=== PATIENT | female | born 1935 | race Caucasian/White ===

== ENCOUNTER 2016-08-02 20:49 | Inpatient (IN) | payer MEDICARE, OTHER ==
[~2016-08-02] VITALS: Ht 162.6 cm; Wt 108.2 kg
[2016-08-02 22:04] LABS: AADO2 Arterial 82.7 mmHg (7.0-24.0); Arterial Base Excess 3.6 mmol/L (-3.0-3); Arterial COHb 0.2 % (0.0-3.0); Arterial Fraction of Oxyhgb 95.7 % (93.0-99.0); Arterial HCO3 28.2 mmol/L (22.0-26.0); Arterial MetHb 0.1 % (0.0-1.5); Arterial Total Hemglobin 11.3 g/dl (12.0-18.0); MODE NASAL CANNULA
--- NOTE | 2016-08-02 22:35 | RADRPT ---
PROCEDURE: CHEST - 1 VIEW CLINICAL INDICATION: 81-year-old female with chest pain. TECHNIQUE: A single frontal AP upright portable view of the chest was performed. The images were reviewed on a PACS workstation. COMPARISON: None. FINDINGS: The cardiomediastinal silhouette is moderately enlarged. The thoracic aortic arch is calcified. Th ere is a minimal right pleural effusion. There is moderate left pleural effusion with left lower lo be compressive atelectasis. There is no evidence for congestive heart failure. There is no evidenc e for pneumothorax. Degenerative changes are seen within the spine. IMPRESSION: 1. Cardiomegaly. 2. Calcified thoracic aorta. 3. Minimal right pleural effusion. 4. Moderate left pleural effusion with left lower lobe compressive atelectasis. 5. Degenerative changes within the spine. .Sixto Garcia MD, Date Time Electronically viewed and signed by .Sixto Garcia MD, MD on 08/02/2016 22:34 .M/
[2016-08-02] MEDS ORDERED: ASPI-664 PO (22:36)
[2016-08-02] MEDS ORDERED: DILT240T PO (22:36)
[2016-08-02] MEDS ORDERED: APIX5TAB PO (22:36)
[2016-08-02] MEDS ORDERED: SS SC (22:36)
[2016-08-02] MEDS ORDERED: CARV6.25 PO (22:36)
[2016-08-02] MEDS ORDERED: ALLO300T2 PO (22:36)
[2016-08-02] MEDS ORDERED: DULO60CA6 PO (22:36)
[2016-08-02] MEDS ORDERED: DOCU-159 PO (22:36)
--- NOTE | 2016-08-02 22:36 | RADRPT ---
PROCEDURE: X-ray pelvis. CLINICAL INDICATION: Pelvic injury. TECHNIQUE: Single frontal view of the pelvis. COMPARISON: None FINDINGS: The study is limited by demineralization and patient body habitus. No acute fracture or dislocation otherwise identified. IMPRESSION: No acute fracture. RPTAT: [facility] Physician Selvin Date Time Electronically viewed and signed by Physician Selvin on 08/02/2016 22:35 RS/
[2016-08-02] MEDS ORDERED: LYRI100 PO (22:58)
[2016-08-02] MEDS ORDERED: HYDR-906 PO (22:58)
[2016-08-02] MEDS ORDERED: ACET-2047 PO (22:58)
[2016-08-02] MEDS ORDERED: LANT3I SC (22:58)
[2016-08-02] MEDS ORDERED: ESOM40CA51 PO (22:58)
[2016-08-02] MEDS ORDERED: ASCO500S2 PO (22:58)
[2016-08-02] MEDS ORDERED: METO25TA4 PO (22:58)
[2016-08-02] MEDS ORDERED: FURO20TA3 PO (22:58)
[2016-08-02] MEDS ORDERED: LOSA100T7 PO (22:58)
[2016-08-02] MEDS ORDERED: UDROBDM PO (22:58)
[2016-08-02] MEDS ORDERED: POTA20TA96 PO (22:58)
[2016-08-02] MEDS ORDERED: ZINC220C5 PO (22:58)
[2016-08-02] MEDS ORDERED: ATOR40TA68 PO (22:58)
[2016-08-02] MEDS ORDERED: AMIN887L PO (22:58)
[2016-08-02] MEDS ORDERED: MULT-876 PO (22:58)
[2016-08-02] MEDS ORDERED: LEVA0.634 INHALATION (22:58)
[2016-08-02 23:13] LABS: ADD SCAN DIFF NO
[2016-08-02 23:16] LABS: BASOPHILS % 0.4 % (0.0-2.0); EOSINOPHILS # 0.4 10^3/ul (0.0-0.5); EOSINOPHILS % 4.6 % (0.0-7.0); HEMATOCRIT 33.2 % (37.0-47.0); HEMOGLOBIN 10.6 g/dl (12.0-16.0); LYMPHOCYTES # 1.6 10^3/ul (0.8-2.9); LYMPHOCYTES % 17.6 % (15.0-51.0); MEAN CORPUSCULAR HEMOGLOBIN 29.7 pg (29.0-33.0); MEAN CORPUSCULAR HGB CONC 31.9 g/dl (32.0-37.0); MEAN PLATELET VOLUME 10.7 fl (7.4-10.4); MONOCYTE # 0.7 10^3/ul (0.3-0.9); MONOCYTES % 7.3 % (0.0-11.0); NEUTROPHIL # 6.3 10^3/ul (1.6-7.5); NEUTROPHILS % 68.9 % (39.0-77.0); PLATELET COUNT 224 10^3/UL (140-415); RED BLOOD COUNT 3.57 10^6/ul (4.20-5.40); RED CELL DISTRIBUTION WIDTH 14.7 % (11.5-14.5); WHITE BLOOD COUNT 9.1 10^3/ul (4.8-10.8)
[2016-08-02 23:45] LABS: ALBUMIN 3.8 g/dl (3.3-4.9); ALBUMIN/GLOBULIN RATIO 1.35; BILIRUBIN,INDIRECT 0.2 mg/dl (0-1.1); BILIRUBIN,TOTAL 0.2 mg/dl (0.2-1.3); CALCIUM 9.4 mg/dl (8.4-10.2); CREATININE 0.96 mg/dl (0.44-1.00); POTASSIUM 4.5 mmol/L (3.5-5.1); TOTAL PROTEIN 6.6 g/dl (6.1-8.1)
[2016-08-02 23:57] LABS: TROPONIN-I 0.031 ng/ml (0.00-0.12)
[2016-08-03] VITALS (14 sets, daily range): BP systolic 133–196; BP diastolic 60–87; PULSE 75–132; RESP 16–20; Ht 162.6 cm; Wt 108.2 kg
[2016-08-03 00:03] LABS: INR 2.06; PROTIME 23.4 Sec (12.2-14.2); PT RATIO 1.8
[2016-08-03] MEDS ORDERED: SOD CHLORIDE 0.9% 100 ML ONE (00:18)
[2016-08-03] MEDS ORDERED: IOHEXOL 300MG/ML 150 ML BTL ONE (00:18)
[2016-08-03 00:21] LABS: ADD UMIC YES; UR ASCORBIC ACID 40 mg/dL (NEGATIVE); UR BACTERIA FEW /HPF (NONE SEEN); UR BILIRUBIN (Dip) NEGATIVE (NEGATIVE); UR BLOOD (Dip) NEGATIVE (NEGATIVE); UR CLARITY SLIGHTLY CLOUDY (CLEAR); UR COLOR AMBER (YELLOW); UR GLUCOSE (Dip) NEGATIVE (NEGATIVE); UR KETONES (Dip) NEGATIVE (NEGATIVE); UR LEUKOCYTE ESTERASE (Dip) NEGATIVE Leu/ul (NEGATIVE); UR MUCUS FEW /HPF (NONE SEEN); UR NITRITE (Dip) NEGATIVE (NEGATIVE); UR RBC 0 /HPF (0-5); UR SPECIFIC GRAVITY (Dip) 1.024 (1.003-1.030); UR SQUAMOUS EPITHELIAL CELL FEW /HPF (FEW); UR TOTAL PROTEIN (Dip) 1+ mg/dl (NEGATIVE); UR UROBILINOGEN (Dip) NEGATIVE (NEGATIVE)
--- NOTE | 2016-08-03 01:27 | RADRPT ---
PROCEDURE: CTA Chest. CLINICAL INDICATION: Shortness of breath, chest pain, rule out pulmonary embolism. TECHNIQUE: Direct spiral axial sections were obtained from the thoracic inlet to the upper abdomen with the use of 100 cc of Omnipaque-300 nonionic intravenous contrast material. Axial MIP, coronal, and sagittal reformations were obtained. The images were reviewed on a PACS workstation. CTDIvol: 7 .04, 49.29, 20.10 mGy. DLP: 865.04 mGy-cm. One or more of the following dose reduction techniques were used: - Automated exposure control. - Adjustment of the mA and/or kV according to patient size. - Use of iterative reconstruction technique. COMPARISON: None. FINDINGS: No pulmonary embolism is identified, however evaluation for segmental and subsegmental emboli is goodman ited by respiratory motion. The main pulmonary artery is mildly enlarged (3.3 cm). There is no aor tic aneurysm. There are mild to moderate arterial calcifications. The heart is enlarged. The patie nt status post aortic valve replacement. There is a small to moderate pericardial effusion. There is a knxaovau-je-lfaiz left pleural effusion with complete atelectasis of the left lower lobe and lingula. Consolidation is noted left upper lobe. There is a calcified granuloma in the left low er lobe. There is a small right pleural effusion and minimal right lung atelectasis. No suspicious thyroid lesion is seen. There is no thoracic lymphadenopathy. The trachea and mainste m bronchi are patent. There is a porcelain gallbladder. Multiple hepatic and splenic calcified granulomas are noted. There is no suspicious osseous lesion. IMPRESSION: 1. No pulmonary embolism is identified, however evaluation for segmental and subsegmental emboli is limited by respiratory motion. 2. Mildly enlarged main pulmonary, suggestive of pulmonary hypertension. 3. Cardiomegaly and a small to moderate pericardial effusion. 4. Status post aortic valve replacement. 5. Qocrbxst-dn-pltbk left pleural effusion with complete atelectasis of the left lower lobe and asher gula. 6. Left upper lobe consolidation. This also probably represents atelectasis, although pneumonia ca nnot be completely excluded. 7. Small right pleural effusion. 8. Porcelain gallbladder. RPTAT: HTAR .Alexis De Los Santos MD, MD Date Time Electronically viewed and signed by .Alexis De Los Santos MD, MD on 08/03/2016 01:27 .R/
[2016-08-03] MEDS ORDERED: HYDROCODONE/APAP (5/325) TAB PO ONE (01:30)
--- NOTE | 2016-08-03 02:03 | ERA ---
ER Documentation Chief Complaint Date/Time DATE: 08/03/16 TIME: 01:52 Chief Complaint SOB, REFERRED BY PMD FOR FURTHER EVAL, HX OF FALL 3-4 DAYS AGO. LT HIP PAIN HPI This is a 81-year-old female shortness of breath for the past 3-4 days progressively worse. Denies any fevers or chills. Does complain of left hip pain secondary to fall a few days ago. Is ambulatory. No chest pain. No nausea. No vomiting. No chills. No other current issues. ROS All systems reviewed and are negative except as per history of present illness. Medications Home Meds Reported Medications Zinc Sulfate* (Zinc Sulfate*) 220 Mg Cap, 220 MG PO DAILY, CAP 08/02/16 Levalbuterol Hcl* (Levalbuterol Hcl*) 0.63 Mg/3 Ml Vial.neb, 0.63 MG INHALATION Q6H Y for WHEEZING AND SOB, VIAL CHRONIC OBSTRUCTIVE PULMONARY DISEASE 08/02/16 Ascorbic Acid* (Ascorbic Acid*) 500 Mg/5 Ml Syrup, 500 MG PO BID for SUPPLEMENT , #300 ML 08/02/16 Acetaminophen* (Acetaminophen*) 650 Mg Tablet, 650 MG PO Q6H Y for PAIN LEVEL 1- 5, #30 TAB 08/02/16 Guaifenesin-Dextromethorphan* (Robitussin* DM) 100MG/10MG/5ML Syrup, 15 ML PO Q6H Y for COUGH, ML 08/02/16 Amino Acids/Protein Hydrolys (Pro-Stat 64 Liquid) 887 Ml Liquid, 30 ML PO TID for SUPPLEMENT 08/02/16 Potassium Chloride* (Potassium Chloride*) 20 Meq Tablet.er, 20 MEQ PO DAILY for SUPPLEMENT, TAB.SA 08/02/16 Hydrocodone/Acetaminophen ([place] 5-325 Tablet) 1 Each Tablet, 1 EACH PO Q4H for PAIN LEVEL 6-10, TAB 08/02/16 Esomeprazole Magnesium (Esomeprazole Magnesium) 40 Mg Capsule.dr, 40 MG PO BEFORE BREAKFAST for GI PROPHYLAXIS, #30 CAP 08/02/16 Multivit-Min/Iron Fum/Folic AC (Tlans-Uebpnuj-Xlgyhqdl Tablet) 1 Each Tablet, 1 EACH PO for SUPPLEMENT, TAB 08/02/16 Pregabalin* (Lyrica*) 100 Mg Capsule, 100 MG PO QHS for NEUROPATHIC PAIN, CAP 08/02/16 Losartan Potassium* (Losartan Potassium*) 100 Mg Tablet, 100 MG PO DAILY, TAB ESSENTIAL(PRIMARY)HYPERTENSION ; HOLD FOR SBP<110 08/02/16 Metoprolol Tartrate* (Lopressor*) 25 Mg Tablet, 75 MG PO DAILY for HTN, #180 TAB ESSENTIAL (PRIMARY)HYPERTENSION; HOLD FOR SBP<110 08/02/16 Atorvastatin* (Atorvastatin*) 40 Mg Tablet, 40 MG PO QHS for HYPERLIPIDEMIA, # 30 TAB 08/02/16 Furosemide* (Furosemide*) 20 Mg Tablet, 20 MG PO DAILY, #60 TAB HEART FALIURE 08/02/16 Insulin Glargine* (Lantus*) 100 Unit/Ml Soln, 25 UNIT SC QHS, #1 VIAL RELATED TO TYPE 2 DIABETES MELLITUS WITHOUT COMPLICATIONS 08/02/16 Insulin Human Regular (Novolin-R U-100) 100 Unit/Ml Soln, 0 SC SLIDING SCALE , EA INJECT PER SLIDING SCALE: IF 141-180= 1unit ; 181-220= 2units ; 221-260= 3units ; 261-300= 4units ; 301-350= 5units ; 351 and above = 6 units and Call MD. Subcutaneously before meals and at bedtime related to TYPE 2 DIABETES MELLITUS WITHOUT COMPLICATIONS 08/02/16 Apixaban* (Eliquis*) 5 Mg Tablet, 10 MG PO BID for CVA PROPHTLAXIS, TAB 08/02/16 Docusate Sodium* (Docusate Sodium*) 100 Mg Capsule, 100 MG PO BID for CONSTIPATION, #60 CAP 08/02/16 Duloxetine Hcl* (Cymbalta*) 60 Mg Capsule.dr, 60 MG PO DAILY for MAJOR DEPRESSIVE DISORDER, CAP 08/02/16 Carvedilol* (Coreg*) 6.25 Mg Tablet, 6.25 MG PO BID for HTN, #60 TAB HOLD FOR SBP <110 08/02/16 Diltiazem Hcl* (Cardizem LA*) 240 Mg Tab.sr.24h, 240 MG PO DAILY for HTN, #30 TAB.SA HOLD FOR SBP<110 08/02/16 Aspirin* (Aspirin* EC) 81 Mg Tablet.dr, 81 MG PO DAILY for CVA PROPHYLAXIS, TAB 08/02/16 Allopurinol* (Allopurinol*) 300 Mg Tablet, 300 MG PO DAILY Y for GOUT, TAB 08/02/16 Allergies Allergies: Coded Allergies: NSAIDS (Non-Steroidal Anti-Inflamma (Unverified Allergy, Unknown, 08/02/16) codeine (Unverified Allergy, Unknown, 08/02/16) Physical Exam Vitals Vital Signs Date Time Temp Pulse Resp B/P Pulse Ox O2 Delivery O2 Flow Rate FiO2 08/02/16 22:30 Nasal Cannula 2.0 08/02/16 22:30 Nasal Cannula 2 08/02/16 21:05 98.0 64 20 137/73 97 Physical Exam Const: [] Head: Atraumatic Eyes: Normal Conjunctiva ENT: Normal External Ears, Nose and Mouth. Neck: Full range of motion..~ No meningismus. Resp: Clear to auscultation bilaterally Cardio: Regular rate and rhythm, no murmurs Abd: Soft, non tender, non distended. Normal bowel sounds Skin: No petechiae or rashes Back: No midline or flank tenderness Ext: No cyanosis, or edema Neur: Awake and alert Psych: Normal Mood and Affect Result Diagram: 08/02/16 2300 08/02/16 2300 Results 24 hrs Laboratory Tests Test 08/02/16 21:13 08/02/16 23:00 08/02/16 23:25 Blood Gas Specimen Source Blood arterial Arterial Blood Date Drawn 08/02/2016 9:52:33 PM Arterial Blood pH (Temp corrected) 7.440 Arterial Blood pCO2 (Temp correct) 42.4mmhg Arterial Blood pO2 (Temp corrected) 81.4mmHG Arterial Blood HCO3 28.2mmol/L Arterial Blood Base Excess 3.6mmol/L Arterial Blood Oxygen Saturation 96.0mmHG Jordin Test N/A Arterial Blood Gas Puncture Site Right Brachial Arterial Blood Carboxyhemoglobin 0.2% Arterial Blood Methemoglobin 0.1% Blood Gas A-a O2 Differential 82.7mmHg Oxyhemoglobin Percent 95.7% Total Hemoglobin 11.3g/dl Blood Gas Temperature 37.0C Blood Gas Modality NASAL CANNULA FiO2 30.0% Blood Gas Notified Whom KM Blood Gas Notified Time 08/02/2016 10:04:10 PM White Blood Count 9.110^3/ul Red Blood Count 3.5710^6/ul Hemoglobin 10.6g/dl Hematocrit 33.2% Mean Corpuscular Volume 93.0fl Mean Corpuscular Hemoglobin 29.7pg Mean Corpuscular Hemoglobin Concent 31.9g/dl Red Cell Distribution Width 14.7% Platelet Count 80150^3/UL Mean Platelet Volume 10.7fl Neutrophils % 68.9% Lymphocytes % 17.6% Monocytes % 7.3% Eosinophils % 4.6% Basophils % 0.4% Nucleated Red Blood Cells % 0.0/100WBC Neutrophils # 6.310^3/ul Lymphocytes # 1.610^3/ul Monocytes # 0.710^3/ul Eosinophils # 0.410^3/ul Basophils # 0.010^3/ul Nucleated Red Blood Cells # 0.010^3/ul Prothrombin Time 23.4Sec Prothrombin Time Ratio 1.8 INR International Normalized Ratio 2.06 Sodium Level 137mmol/L Potassium Level 4.5mmol/L Chloride Level 95mmol/L Carbon Dioxide Level 31mmol/L Anion Gap 16 Blood Urea Nitrogen 20mg/dl Creatinine 0.96mg/dl Glucose Level 173mg/dl Calcium Level 9.4mg/dl Total Bilirubin 0.2mg/dl Direct Bilirubin 0.00mg/dl Indirect Bilirubin 0.2mg/dl Aspartate Amino Transf (AST/SGOT) 21IU/L Alanine Aminotransferase (ALT/SGPT) 28IU/L Alkaline Phosphatase 78IU/L Troponin I 0.031ng/ml B-Type Natriuretic Peptide 3030PG/ML Total Protein 6.6g/dl Albumin 3.8g/dl Globulin 2.80g/dl Albumin/Globulin Ratio 1.35 Lipase 50U/L Urine Color SUZANNE Urine Clarity SLIGHTLY CLOUDY Urine pH 5.0 Urine Specific [place] 1.024 Urine Ketones NEGATIVEmg/dL Urine Nitrite NEGATIVEmg/dL Urine Bilirubin NEGATIVEmg/dL Urine Urobilinogen NEGATIVEmg/dL Urine Leukocyte Esterase NEGATIVELeu/ul Urine Microscopic RBC 0/HPF Urine Microscopic WBC 2/HPF Urine Squamous Epithelial Cells FEW/HPF Urine Bacteria FEW/HPF Urine Hyaline Casts FEW/HPF Urine Mucus FEW/HPF Urine Hemoglobin NEGATIVEmg/dL Urine Glucose NEGATIVEmg/dL Urine Total Protein 1+mg/dl Current Medications Medications (Trade) Dose Ordered Sig/Carlos Route PRN Reason Start Time Stop Time Status Last Admin Dose Admin Sodium Chloride (NS) 100 ml @ ud STK-MED ONCE .ROUTE 08/03/16 00:18 08/03/16 00:19 DC 08/03/16 00:55 Iohexol (Omnipaque 300mg/ ml) 150 ml STK-MED ONCE .ROUTE 08/03/16 00:18 08/03/16 00:19 DC 08/03/16 00:55 Acetaminophen/ Hydrocodone Bitart ([place] (5/325)) 1 tab ONCE ONCE PO 08/03/16 01:30 08/03/16 01:31 DC 08/03/16 01:16 Procedures/MDM EKG: Rate/Rhythm: Normal Sinus Rhythm QRS, ST, T-waves: No changes consistent w/ acute ischemia Impression: No evidence of ischemia or arrhythmia Chest X-ray 1V Interpreted by me: Soft Tissue: No acute abnormalities Bones: No acute abnormalities Mediastinum/Cardiac Silhouette/Lungs: Increased interstitial fluid markings. Impression: CHF Patient's heart failure symptoms is concerning for acute decompensation and will require inpatient workup and monitoring. Further w/u for ischemia, arrhythmia, PE or dissection will be deferred to the inpatient team. Accepting Care Team: Current data and ongoing care discussed. Time: 1 AM 1 AM Primary Provider: Hospitalist Consulting: [XOXOXO] Outstanding Data: none Departure Diagnosis: Primary Impression: Shortness of breath Additional Impression: CHF (congestive heart failure) Qualified Code: I50.9 - Congestive heart failure, unspecified congestive heart failure chronicity, unspecified congestive heart failure type Condition: Serious DEJAN MATUTE Aug 03, 2016 02:02
[2016-08-03] MEDS ORDERED: ALLOPURINOL 300 MG TAB PO PRN (05:30)
[2016-08-03] MEDS ORDERED: GUAIFENESIN/DM 5ML CUP PO PRN (05:30)
[2016-08-03] MEDS ORDERED: FUROSEMIDE 40 MG INJ IV ONE (05:30)
[2016-08-03] MEDS ORDERED: ONDANSETRON 4 MG INJ IV PRN (05:30)
[2016-08-03] MEDS ORDERED: LEVALBUTEROL (NEB) 0.63 MG/3 ML AMP INH PRN (05:30)
[2016-08-03] MEDS ORDERED: NACL 0.9% 3 ML SYG IV SCH (05:30)
--- NOTE | 2016-08-03 05:35 | HP ---
Date/Time of Note Date/Time of Note DATE: 08/03/16 TIME: 05:09 Assessment/Plan VTE Prophylaxis VTE Prophylaxis Intervention: other (Eliquis) Lines/Catheters [facility] Saline Lock Urinary Cath still in place: Yes Reason Cath still needed: other (indicate) (Clinical condition) Assessment/Plan Chief Complaint/Hosp Course This is a 81-year-old female being admitted to the telemetry floor for: #1 CHF exacerbation: Patient does appear to be clinically overloaded with evidence of bilateral pleural effusions with left greater than the right. BNP 3030. She does appear to be in acute respiratory distress while laying down. At the current time will give her 1 dose of IV Lasix 40 mg, I would like to monitor her fluid status as currently there was evidence of possible small to moderate pericardial effusion on CT scan. Will obtain a 2D echo of the heart and will consult CT surgery. In the meantime will provide gentle diuresis as she also did receive Lasix in the ED. Currently we will keep her n.p.o. in case of possible surgical procedure. Possible consideration for left-sided thoracentesis if diuresis is not adequate. Maintain supplemental O2 saturation. As patient currently has a normal white blood cell count no fevers and no cough at the current time I would think pneumonia is less likely. We will continue to monitor for any signs of infection. Consult cardiology. #2 pericardial effusion: This possibly could be a complication of her most recent aortic valve replacement. Patient had her replacement within the last 3- [address] [facility] based on her records that came with her chart today. Will consult CT surgery. It is possible that this patient may need to be transferred to the facility where she had her recent valve replacement done however we will await further recommendations from CT surgery in the a.m. #3 diabetes mellitus: Continue Lantus, insulin sliding scale #4 COPD: Continue medications from home #5 hypertension: Continue home medications #6 chronic kidney disease: Patient apparently has a history of chronic kidney disease and apparently during her admission at [facility] approximately 3-4 weeks ago her creatinine at that time was approximately about 5. At the current time her creatinine is 0.93. Her previous level could likely have been an acute onset secondary to possible cardiorenal causes. We will continue to follow this at this time. #7 gout: We will hold current medication at this time. #8Left hip pain: Patient's pelvic x-ray did not show any acute signs of fracture. We will continue to monitor patient's pain further imaging if indicated. #9 Normocytic anemia: Hemoglobin currently 10. No current signs of any bleeding. Continue to monitor patient. #10 anticoagulation: This could be possibly to her recent aortic valve replacement however on her med rec it does state regarding CVA prophylaxis. Continue current medication for right now patient may need to have Eliquis held if undergoing procedure. 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 Will defer further management regarding this to the day team once we stabilize the patient's cardiac issues. #12 DVT and GI prophylaxis: On Eliquis, Protonix. Further treatment strategy will be implemented as per the clinical course. Problems: HPI/ROS Admit Date/Time Admit Date/Time Aug 03, 2016 at 01:10 Hx of Present Illness Chief complaint: Shortness of breath 4 days This is a 81-year-old female with a history of multiple medical problems including recent TAVR approximately 3-4 weeks ago, comes in today with shortness of breath 4 days. Of note patient is a poor historian. Patient currently is living at [facility]. Patient states that she started experiencing shortness of breath over the last 3-4 days and it has progressively gotten worse. Patient also states that she fell the other day did not lose any consciousness or hit her head. She did develop fall on her left hip. Patient denies any chest pain or any coughing at this time. Denies any fevers. Denies any sputum production. She does state that she noticed some swelling in her lower extremities. Allergies: NSAIDs, codeine Medications: See JACINDA ROMERO Const: As per HPI Eyes : No pain discharge or redness or change in visual acuity ENT: No pain, sore throat, congestion, congestion, dysphagia or discharge Respiratory: As per HPI Cardiovascular: As per HPI GI : no change in appetite, abdominal pain, nausea, vomiting, diarrhea, constipation, or change in the color his stool Genitourinary: No dysuria, hematuria, flank pain , discharge or CVA tenderness Musculoskeletal: No joint pain, back pain, neck pain, restricted range of motion in neck or joints Skin: As per HPI Neuro: No headache, dizziness, syncope, seizure, focal weakness Endocrine: No polyuria, polydipsia, temperature intolerance Psych: No hallucination, depression, anxiety or suicidal ideation PMH/Family/Social Past Medical History Aortic valve replacement secondary to severe symptomatic aortic stenosis, Dependence on supplemental oxygen Heart failure Pressure ulcer of sacral region Type 2 diabetes with insulin-dependent Hyperlipidemia Major depressive disorder COPD Gout Morbid obesity Hypertension Chronic kidney disease Past Surgical History Aortic valve replacement, pacemaker insertion Family History Significant Family History: no pertinent family hx (Unable to give accurate history) Social History Alcohol Use: none Smoking Status: Former smoker Drug Use: none Exam/Review of Systems Vital Signs Vitals Vital Signs Date Time Temp Pulse Resp B/P Pulse Ox O2 Delivery O2 Flow Rate FiO2 08/03/16 04:04 98.6 72 16 146/65 96 08/03/16 03:06 Nasal Cannula 2.0 Exam Exam General: Patient is a very pleasant morbidly obese female laying in bed in no acute distress. HEENT: Atraumatic, normocephalic. The pupils are equal, round and reactive. Extraocular motor are intact Neck: Supple with full range of motion. No rigidity or meningismus Chest: Nontender Lungs: Dullness to percussion at the left lower lung yee, decreased breath sounds over the left lower lung yee. No overt wheezing appreciated. Heart: Normal S1-S2, Regular rhythm and rate. Possible right-sided systolic murmur at the right second intercostal space Abdomen: Soft , nontender, nondistended , bowel sounds are present. No guarding no rebound tenderness , morbidly obese Extremities: Trace lower extremity edema from the level of the feet to the lower zaragoza, bilateral venous stasis Neurologic: Relatively normal mental state, speech normal, cranial nerves II through XII are intact, motor and sensory are intact, no focal weakness, overall good cognitive ability though some possible memory issues Additional Comments PROCEDURE: CTA Chest. CLINICAL INDICATION: Shortness of breath, chest pain, rule out pulmonary embolism. TECHNIQUE: Direct spiral axial sections were obtained from the thoracic inlet to the upper abdomen with the use of 100 cc of Omnipaque-300 nonionic intravenous contrast material. Axial MIP, coronal, and sagittal reformations were obtained. The images were reviewed on a PACS workstation. CTDIvol: 7.04, 49.29, 20.10 mGy. DLP: 865.04 mGy-cm. One or more of the following dose reduction techniques were used: - Automated exposure control. - Adjustment of the mA and/or kV according to patient size. - Use of iterative reconstruction technique. COMPARISON: None. FINDINGS: No pulmonary embolism is identified, however evaluation for segmental and subsegmental emboli is limited by respiratory motion. The main pulmonary artery is mildly enlarged (3.3 cm). There is no aortic aneurysm. There are mild to moderate arterial calcifications. The heart is enlarged. The patient status post aortic valve replacement. There is a small to moderate pericardial effusion. There is a tbhwveie-kv-lmglj left pleural effusion with complete atelectasis of the left lower lobe and lingula. Consolidation is noted left upper lobe. There is a calcified granuloma in the left lower lobe. There is a small right pleural effusion and minimal right lung atelectasis. No suspicious thyroid lesion is seen. There is no thoracic lymphadenopathy. The trachea and mainstem bronchi are patent. There is a porcelain gallbladder. Multiple hepatic and splenic calcified granulomas are noted. There is no suspicious osseous lesion. IMPRESSION: 1. No pulmonary embolism is identified, however evaluation for segmental and subsegmental emboli is limited by respiratory motion. 2. Mildly enlarged main pulmonary, suggestive of pulmonary hypertension. 3. Cardiomegaly and a small to moderate pericardial effusion. 4. Status post aortic valve replacement. 5. Wlowqsui-cg-dbxhg left pleural effusion with complete atelectasis of the left lower lobe and lingula. 6. Left upper lobe consolidation. This also probably represents atelectasis, although pneumonia cannot be completely excluded. 7. Small right pleural effusion. 8. Porcelain gallbladder. RPTAT: HTAR .Alexis De Los Santos MD, MD Date Time Electronically viewed and signed by .Alexis De Los Santos MD, on 08/03/2016 01:27 PROCEDURE: X-ray pelvis. CLINICAL INDICATION: Pelvic injury. TECHNIQUE: Single frontal view of the pelvis. COMPARISON: None FINDINGS: The study is limited by demineralization and patient body habitus. No acute fracture or dislocation otherwise identified. IMPRESSION: No acute fracture. RPTAT: [facility] Physician Selvin Date Time Electronically viewed and signed by Physician Selvin on 08/02/2016 22:35 PROCEDURE: CHEST - 1 VIEW CLINICAL INDICATION: 81-year-old female with chest pain. TECHNIQUE: A single frontal AP upright portable view of the chest was performed. The images were reviewed on a PACS workstation. COMPARISON: None. FINDINGS: The cardiomediastinal silhouette is moderately enlarged. The thoracic aortic arch is calcified. There is a minimal right pleural effusion. There is moderate left pleural effusion with left lower lobe compressive atelectasis. There is no evidence for congestive heart failure. There is no evidence for pneumothorax. Degenerative changes are seen within the spine. IMPRESSION: 1. Cardiomegaly. 2. Calcified thoracic aorta. 3. Minimal right pleural effusion. 4. Moderate left pleural effusion with left lower lobe compressive atelectasis. 5. Degenerative changes within the spine. .Sixto Garcia MD, Date Time Electronically viewed and signed by .Sixto Garcia MD, on 08/02/2016 22:34 .M/ Labs Result Diagram: 08/02/16 2300 08/02/16 2300 SNEHAL AMANDA Aug 03, 2016 05:23
[2016-08-03] MEDS ORDERED: GLUCOSE GEL 15 GRAM TUBE PO PRN ×2 (06:00)
[2016-08-03] MEDS ORDERED: GLUCOSE GEL 15 GRAM TUBE BUCCAL PRN (06:00)
[2016-08-03] MEDS ORDERED: PENDING SANTYL ORDER FOR WOUND CARE XX PRN (06:00)
[2016-08-03] MEDS ORDERED: DEXTROSE 50% 50 ML SYRINGE IV PRN ×2 (06:00)
[2016-08-03] MEDS ORDERED: GLUCAGON 1 MG INJ IM PRN (06:00)
[2016-08-03] MEDS: PANTOPRAZOLE 40 MG INJ IV SCH (06:13)
[2016-08-03] MEDS: ACETAMINOPHEN 325 MG TAB PO PRN ×2 (06:49→19:16)
[2016-08-03] MEDS ORDERED: ASCORBIC ACID 100 MG/ML 120ML BTL PO SCH (09:00)
[2016-08-03] MEDS: DULOXETINE 30 MG CAP DR PO SCH (09:28)
[2016-08-03] MEDS: PHENAZOPYRIDINE 100 MG TAB PO SCH ×2 (09:28→21:10)
[2016-08-03] MEDS: DOCUSATE SODIUM 100 MG CAP PO SCH ×2 (09:29→21:10)
[2016-08-03] MEDS: ASPIRIN (EC) 81 MG TAB PO SCH (09:29)
[2016-08-03] MEDS: DILTIAZEM (CD) 240 MG CAP PO SCH (09:29)
[2016-08-03] MEDS: ZINC SULFATE 220 MG CAP PO SCH (09:29)
[2016-08-03] MEDS: LOSARTAN 50 MG TAB PO SCH (09:29)
[2016-08-03] MEDS: ASCORBIC ACID 500 MG TAB PO SCH ×2 (09:30→21:10)
[2016-08-03] MEDS: APIXABAN 5 MG TABLET PO SCH ×2 (09:30→21:10)
[2016-08-03] MEDS: INSULIN ASPART [NOVOLOG] 3 ML PEN SC SCH ×4 (09:37→21:36)
--- NOTE | 2016-08-03 13:50 | CONS ---
Date/Time of Note Date/Time of Note DATE: 08/03/16 TIME: 13:40 Assessment/Plan Assessment/Plan Chief Complaint/Hosp Course IMp: 1.CHF-by CT ? diastolic vs systolic. acute on chronic 2.AF with RVR 3.H/O AVR-? bioprosthetic 4.COPD 5.SOB 6. Coagulopathy 7. AnemiA Recc: -Tele -serial ecg's -echo to asses significance of effusion -Continue eliquis but decrease dose -Contineu coreg with increase in dose to improve HR control/dilt/losartan -Give IVP digoxin to improve HR -Gentle lasix diuresis -Continue statin Problems: Consultation Date/Type/Reason Admit Date/Time Aug 03, 2016 at 01:10 Date of Consultation: Aug 03, 2016 Type of Consultation: Cardiology Reason for Consultation CHF Referring Provider: SNEHAL AMANDA of Present Illness 81 y/o female with h/o copd, HTN, CKD, porcelein GB, CHF, recent AVR who P/W sob. Has bilateral effusions and small to moderate effsuion by chest CT. Since admit now with onset of AF Review of Systems: CONSTITUTIONAL: No fevers, chills. PULMONARY: mild sob CARDIOVASCULAR: positive chest pain and palpitations GASTROINTESTINAL: No nausea/vomiting. GENITOURINARY: No hematuria/dysuria. MUSCULOSKELETAL: No myagias/arthalgias. PSYCHIATRIC: The patient denies depression. NEUROLOGIC: generalize weakness Constitutional: other (lethargic) Eyes: no complaints ENT: no complaints Respiratory: shortness of breath Cardiovascular: chest pain, no complaints Gastrointestinal: no complaints Musculoskeletal: bone/joint pain Skin: no complaints Neurologic: confusion Endocrine: no complaints Psychological: no complaints Past Medical History copd, AVR, CKD Medical History: hypertension Past Surgical History h/o AVR Family History Significant Family History: no pertinent family hx Social History Alcohol Use: none Smoking Status: Former smoker Drug Use: none Exam/Review of Systems Vital Signs Vitals Vital Signs Date Time Temp Pulse Resp B/P Pulse Ox O2 Delivery O2 Flow Rate FiO2 08/03/16 12:25 132 08/03/16 11:20 98.6 19 159/79 96 08/03/16 09:03 2.0 08/03/16 08:36 Nasal Cannula Intake and Output 08/02/16 08/02/16 08/03/16 15:00 23:00 07:00 Intake Total 50 ml Output Total 1500 ml Balance -1450 ml Exam Constitutional: other (lethargic) Head: normocephalic ENMT: mucosa pink and moist Neck: jvd (9 cm water), supple Respiratory: diminished breath sounds (at bases/B) Cardiovascular: irregular rhythm (tachycardic) Gastrointestinal: non-tender, soft Musculoskeletal: muscle tone (normal) Extremities: edema (bilateral) Neurological: lethargic Results Result Diagram: 08/02/16 2300 08/02/16 2300 Results 24 hrs Laboratory Tests Test 08/02/16 21:13 08/02/16 23:00 08/02/16 23:25 08/03/16 08:44 Blood Gas Specimen Source Blood arterial Arterial Blood Date Drawn 08/02/2016 9:52:33 PM Arterial Blood pH (Temp corrected) 7.440 Arterial Blood pCO2 (Temp correct) 42.4 Arterial Blood pO2 (Temp corrected) 81.4 Arterial Blood HCO3 28.2 H Arterial Blood Base Excess 3.6 H Arterial Blood Oxygen Saturation 96.0 Jordin Test N/A Arterial Blood Gas Puncture Site Right Brachial Arterial Blood Carboxyhemoglobin 0.2 Arterial Blood Methemoglobin 0.1 Blood Gas A-a O2 Differential 82.7 H Oxyhemoglobin Percent 95.7 Total Hemoglobin 11.3 L Blood Gas Temperature 37.0 Blood Gas Modality NASAL CANNULA FiO2 30.0 Blood Gas Notified Whom KM Blood Gas Notified Time 08/02/2016 10:04:10 PM White Blood Count 9.1 Red Blood Count 3.57 L Hemoglobin 10.6 L Hematocrit 33.2 L Mean Corpuscular Volume 93.0 Mean Corpuscular Hemoglobin 29.7 Mean Corpuscular Hemoglobin Concent 31.9 L Red Cell Distribution Width 14.7 H Platelet Count 224 Mean Platelet Volume 10.7 H Neutrophils % 68.9 Lymphocytes % 17.6 Monocytes % 7.3 Eosinophils % 4.6 Basophils % 0.4 Nucleated Red Blood Cells % 0.0 Neutrophils # 6.3 Lymphocytes # 1.6 Monocytes # 0.7 Eosinophils # 0.4 Basophils # 0.0 Nucleated Red Blood Cells # 0.0 Prothrombin Time 23.4 H Prothrombin Time Ratio 1.8 INR International Normalized Ratio 2.06 Sodium Level 137 Potassium Level 4.5 Chloride Level 95 L Carbon Dioxide Level 31 Anion Gap 16 Blood Urea Nitrogen 20 Creatinine 0.96 Glucose Level 173 Calcium Level 9.4 Total Bilirubin 0.2 Direct Bilirubin 0.00 Indirect Bilirubin 0.2 Aspartate Amino Transf (AST/SGOT) 21 Alanine Aminotransferase (ALT/SGPT) 28 Alkaline Phosphatase 78 Troponin I 0.031 B-Type Natriuretic Peptide 3030 H Total Protein 6.6 Albumin 3.8 Globulin 2.80 Albumin/Globulin Ratio 1.35 Lipase 50 Urine Color SUZANNE Urine Clarity SLIGHTLY CLOUDY A Urine pH 5.0 Urine Specific Orange 1.024 Urine Ketones NEGATIVE Urine Nitrite NEGATIVE Urine Bilirubin NEGATIVE Urine Urobilinogen NEGATIVE Urine Leukocyte Esterase NEGATIVE Urine Microscopic RBC 0 Urine Microscopic WBC 2 Urine Squamous Epithelial Cells FEW Urine Bacteria FEW A Urine Hyaline Casts FEW A Urine Mucus FEW A Urine Hemoglobin NEGATIVE Urine Glucose NEGATIVE Urine Total Protein 1+ H Bedside Glucose 207 Test 08/03/16 09:39 08/03/16 12:03 Prealbumin 7.5 L Bedside Glucose 186 Medications Medications Current Medications Ondansetron HCl (Zofran Inj) 4 mg Q6H PRN IV NAUSEA AND/OR VOMITING; Start at 05:30 Acetaminophen (Tylenol Tab) 650 mg Q6H PRN PO PAIN LEVEL 1-3 OR FEVER Last administered on 08/03/16 06:49; Admin Dose 650 MG; Start 08/03/16 at 05:30 Pantoprazole (Protonix Iv) 40 mg DAILY@06 IV Last administered on 08/03/16 06: 13; Admin Dose 40 MG; Start 08/03/16 at 06:00 Allopurinol (Zyloprim) 300 mg DAILY PRN PO GOUT; Start 08/03/16 at 05:30 Apixaban (Eliquis) 10 mg BID PO Last administered on 08/03/16 09:30; Admin Dose 10 MG; Start 08/03/16 at 09:00 Aspirin (Halfprin) 81 mg DAILY PO Last administered on 08/03/16 09:29; Admin Dose 81 MG; Start 08/03/16 at 09:00 Atorvastatin Calcium (Lipitor) 40 mg QHS PO ; Start 08/03/16 at 21:00 Carvedilol (Coreg) 6.25 mg BID PO Last administered on 08/03/16 09:30; Admin Dose 6.25 MG; Start 08/03/16 at 09:00 Diltiazem HCl (Cardizem Cd) 240 mg DAILY PO Last administered on 08/03/16 09: 29; Admin Dose 240 MG; Start 08/03/16 at 09:00 Docusate Sodium (Colace) 100 mg BID PO Last administered on 08/03/16 09:29; Admin Dose 100 MG; Start 08/03/16 at 09:00 Duloxetine HCl (Cymbalta) 60 mg DAILY PO Last administered on 08/03/16 09:28; Admin Dose 60 MG; Start 08/03/16 at 09:00 Guaifenesin/ Dextromethorphan (Robitussin Dm Liquid Cup) 15 ml Q6H PRN PO COUGH ; Start 08/03/16 at 05:30 Insulin Glargine (Lantus) 25 unit QHS SC ; Start 08/03/16 at 21:00 Losartan Potassium (Cozaar) 100 mg DAILY PO Last administered on 08/03/16 09: 29; Admin Dose 100 MG; Start 08/03/16 at 09:00 Pregabalin (Lyrica) 100 mg QHS PO ; Start 08/03/16 at 21:00 Zinc Sulfate (Zinc Sulfate) 220 mg DAILY PO Last administered on 08/03/16 09: 29; Admin Dose 220 MG; Start 08/03/16 at 09:00 Ascorbic Acid (Vitamin C) 500 mg BID PO Last administered on 08/03/16 09:30; Admin Dose 500 MG; Start 08/03/16 at 09:00 Insulin Aspart (Novolog Insulin Pen) NOVOLOG *MILD* ALGORI... Q4 SC Last administered on 08/03/16 13:22; Admin Dose 2 UNIT; Start 08/03/16 at 09:00 Miscellaneous Information 1 ea NOTE XX ; Start 08/03/16 at 06:00 Glucose (Glutose) 15 gm Q15M PRN PO DECREASED GLUCOSE; Start 08/03/16 at 06:00 Glucose (Glutose) 22.5 gm Q15M PRN PO DECREASED GLUCOSE; Start 08/03/16 at 06: 00 Dextrose (D50w Syringe) 25 ml Q15M PRN IV DECREASED GLUCOSE; Start 08/03/16 at 06:00 Dextrose (D50w Syringe) 50 ml Q15M PRN IV DECREASED GLUCOSE; Start 08/03/16 at 06:00 Glucagon (Glucagen) 1 mg Q15M PRN IM DECREASED GLUCOSE; Start 08/03/16 at 06:00 Glucose (Glutose) 15 gm Q15M PRN BUCCAL DECREASED GLUCOSE; Start 08/03/16 at 06 :00 Miscellaneous Information (Pending Santyl Order For Wound Care) This patient stinson... PRN PRN XX WOUND CARE; Start 08/03/16 at 06:00 Phenazopyridine HCl (Pyridium) 100 mg BID PO Last administered on 08/03/16t 09: 28; Admin Dose 100 MG; Start 08/03/16 at 09:00 SCARLET WALTERS Aug 03, 2016 13:50
[2016-08-03] MEDS ORDERED: METOPROLOL 5 MG INJ IV PRN (14:30)
[2016-08-03] MEDS: DIGOXIN 500 MCG INJ IV SCH ×2 (14:50→21:04)
[2016-08-03] MEDS: CEFTRIAXONE 1 GM/50 ML (PMX) 50 ML IVPB SCH (16:44)
[2016-08-03] MEDS ORDERED: FLUCONAZOLE 200 MG/NS (PMX) 100 ML IVPB SCH (17:00)
--- NOTE | 2016-08-03 17:53 | RADRPT ---
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 Physician: SNEHAL AMANDA Quality: Adequate Procedures: Transthoracic echocardiogram with complete 2D, M-Mode, and doppler examination. Indications: Pericardial Effusion, recent TAVR. 2D/M Mode Doppler Measurement Value Normal Ranges Measurement Value Normal Ranges LVIDd 2D 4.7 3.5 - 5.6 cm RENO Vmax 1.4 cm2 LVIDs 2D 2.7 2.1 - 4.1 cm RENO VTI 1.4 cm2 FS 2D 42.4 % AV Mean Victoriano 2.5 m/sec LVPWd 2D 1.3 0.6 - 1.1 cm AV Mean PG 30.0 mmHg IVSd 2D 1.4 0.6 - 1.1 cm AV Peak Victoriano 3.5 m/sec IVS/LVPW 2D 1.1 AV Peak PG 50.0 mmHg AoR Diam 2D 2.1 2.0 - 3.7 cm AV VTI 70.6 cm LA/Ao 2D 2 0 - 1 LVOT Mean Victoriano 1.2 m/sec EDV 2D 105.0 cm3 LVOT Mean PG 7.0 mmHg ESV 2D 20.1 cm3 LVOT Peak Victoriano 1.7 m/sec LA Dimen 2D 4.5 2.3 - 4.0 cm LVOT Peak PG 11.0 mmHg LVOT Diam 1.9 cm LVOT VTI 34.6 cm LVOT Area 2.8 cm2 MV E Peak Victoriano 1.0 m/sec MV A Peak Victoriano 1.2 m/sec MV E/A 0.8 MV Decel Time 155 msec MV E/A 0.8 TR Peak Victoriano 3.5 m/sec TR Peak PG 48.0 mmHg RVSP 56.0 mmHg Findings Left Ventricle: Hyperdynamic left ventricular systolic function. Normal left ventricular cavity size. Moderate concentric left ventricular hypertrophy. Ejection fraction is visually estimated at 60 %. Tissue Doppler/Mitral Doppler indices are consistent with impaired relaxation (Stage I diastolic dysfunction). Right Ventricle: Normal right ventricular size. Normal right ventricular systolic function. Left Atrium: The left atrium is normal in size. Right Atrium: The right atrium is normal in size. Mitral Valve: Mitral valve leaflets appear mildly thickened. Mild mitral annular calcification. Trace mitral regurgitation. Aortic Valve: Transcatheter aoritc valve replacement. Aortic valve Max velocity 3.53 m/sec. Max PG 50.00 mmHg. Mean PG 30.00 mmHg. No aortic regurgitation. Tricuspid Valve: Normal appearance of the tricuspid valve. Estimated peak PA systolic pressure 56 mmHg. There is mild tricuspid regurgitation. Pulmonic Valve: Normal pulmonic valve appearance. Pericardium: Small pericardial effusion. Pleural effusion seen. Aorta: Normal aortic root. IVC: Normal size and no respiratory collapse consistent with elevated right atrial pressure. Conclusions 1.Hyperdynamic left ventricular systolic function. Normal left ventricular cavity size. Moderate concentric left ventricular hypertrophy. Ejection fraction is visually estimated at 60 %. Tissue Doppler/Mitral Doppler indices are consistent with impaired relaxation (Stage I diastolic dysfunction). 2.Mitral valve leaflets appear mildly thickened. Mild mitral annular calcification. Trace mitral regurgitation. 3.Bioprosthetic aortic valve replacement. Aortic valve Max velocity 3.53 m/sec. Max PG 50.00 mmHg. Mean PG 30.00 mmHg. No aortic regurgitation. 4.Normal appearance of the tricuspid valve. Estimated peak PA systolic pressure 56 mmHg. There is mild tricuspid regurgitation. 5.Small pericardial effusion. Pleural effusion seen. Electronically Signed By: Billy Aguirre 03-Aug-2016 17:53:31 -0700 Patient Name: GARFIELD STANTON Study Date: 03-Aug-2016 [id number]
[2016-08-03] MEDS: FUROSEMIDE 20 MG INJ IV SCH (18:10)
[2016-08-03] MEDS ORDERED: PREGABALIN 100 MG CAP PO SCH (21:00)
[2016-08-03] MEDS: ATORVASTATIN 40 MG TAB PO SCH (21:09)
[2016-08-03] MEDS: PREGABALIN 25 MG CAP PO SCH (21:20)
[2016-08-03] MEDS: INSULIN GLARGINE [LANtus] 3 ML PEN SC SCH (21:30)
[2016-08-03] MEDS ORDERED: COLLAGENASE 30 GM TUBE TOP PRN (22:00)
[2016-08-04] VITALS (15 sets, daily range): BP systolic 92–193; BP diastolic 60–95; PULSE 80–121; RESP 18–20
[2016-08-04] MEDS: COLLAGENASE 30 GM TUBE TOP SCH ×2 (01:52→09:15)
[2016-08-04] MEDS: INSULIN ASPART [NOVOLOG] 3 ML PEN SC SCH ×4 (02:00→12:58)
[2016-08-04] MEDS: PANTOPRAZOLE 40 MG INJ IV SCH (06:21)
[2016-08-04] MEDS: FUROSEMIDE 20 MG INJ IV SCH ×2 (06:22→18:32)
[2016-08-04 07:58] LABS: ADD SCAN DIFF NO
[2016-08-04 08:05] LABS: BASOPHIL # 0.1 10^3/ul (0.0-0.1); BASOPHILS % 0.7 % (0.0-2.0); EOSINOPHILS # 0.5 10^3/ul (0.0-0.5); EOSINOPHILS % 5.3 % (0.0-7.0); HEMATOCRIT 34.3 % (37.0-47.0); LYMPHOCYTES # 1.2 10^3/ul (0.8-2.9); LYMPHOCYTES % 13.7 % (15.0-51.0); MEAN CORPUSCULAR HEMOGLOBIN 29.5 pg (29.0-33.0); MEAN CORPUSCULAR HGB CONC 32.1 g/dl (32.0-37.0); MEAN PLATELET VOLUME 11.3 fl (7.4-10.4); MONOCYTE # 0.7 10^3/ul (0.3-0.9); MONOCYTES % 8.5 % (0.0-11.0); PLATELET COUNT 243 10^3/UL (140-415); RED BLOOD COUNT 3.73 10^6/ul (4.20-5.40); RED CELL DISTRIBUTION WIDTH 14.6 % (11.5-14.5); WHITE BLOOD COUNT 8.5 10^3/ul (4.8-10.8)
[2016-08-04 08:49] LABS: ALBUMIN 3.3 g/dl (3.3-4.9); ALBUMIN/GLOBULIN RATIO 1.32; BILIRUBIN,INDIRECT 0.3 mg/dl (0-1.1); BILIRUBIN,TOTAL 0.3 mg/dl (0.2-1.3); CALCIUM 8.9 mg/dl (8.4-10.2); CREATININE 0.73 mg/dl (0.44-1.00); MAGNESIUM 1.6 mg/dl (1.7-2.5); TOTAL PROTEIN 5.8 g/dl (6.1-8.1)
[2016-08-04] MEDS: HYDROCODONE/APAP (5/325) TAB PO PRN ×2 (08:50→22:32)
[2016-08-04] MEDS: DOCUSATE SODIUM 100 MG CAP PO SCH ×2 (08:50→21:25)
[2016-08-04] MEDS: ASPIRIN (EC) 81 MG TAB PO SCH (08:51)
[2016-08-04] MEDS: DULOXETINE 30 MG CAP DR PO SCH (08:51)
[2016-08-04] MEDS: LOSARTAN 50 MG TAB PO SCH (08:51)
[2016-08-04] MEDS: APIXABAN 5 MG TABLET PO SCH ×2 (08:52→22:32)
[2016-08-04] MEDS: DILTIAZEM (CD) 240 MG CAP PO SCH (08:52)
[2016-08-04] MEDS: ASCORBIC ACID 500 MG TAB PO SCH ×2 (08:52→21:31)
[2016-08-04] MEDS: PHENAZOPYRIDINE 100 MG TAB PO SCH ×2 (08:52→22:33)
[2016-08-04] MEDS: ZINC SULFATE 220 MG CAP PO SCH (08:53)
--- NOTE | 2016-08-04 10:33 | RADRPT ---
Vent Rate: 120 bpm RR Interval: 0 msec CA Interval: 0 msec QRS Duration: 90 msec QT Interval: 278 msec QTC Interval: 392 msec P-R-T [place]: 0 - -13 - 180 degrees Atrial fibrillation with rapid ventricular response with premature ventricular or aberrantly conducted complexes Septal infarct , age undetermined ST amp; T wave abnormality, consider inferolateral ischemia or digitalis effect Abnormal ECG Electronically Signed By: Messi Briceno [id number]
--- NOTE | 2016-08-04 10:34 | RADRPT ---
Vent Rate: 91 bpm RR Interval: 0 msec [place] Interval: 0 msec QRS Duration: 94 msec QT Interval: 334 msec QTC Interval: 410 msec P-R-T [place]: 0 - 4 - [address] amp; T wave abnormality, consider inferolateral ischemia or digitalis effect Abnormal ECG Electronically Signed By: Messi Briceno [id number]
[2016-08-04] MEDS ORDERED: morphine 10 MG INJ IM PRN (12:00)
[2016-08-04] MEDS ORDERED: MAGNESIUM SULFATE 2 GM/50 ML 50 ML IVPB ONE (12:00)
--- NOTE | 2016-08-04 12:03 | PN ---
Date/Time of Note Date/Time of Note DATE: 08/04/16 TIME: 12:02 Assessment/Plan VTE Prophylaxis VTE Prophylaxis Intervention: other (Eliquis) Lines/Catheters IV C[facility] Type ([facility] Peripheral IV Urinary Cath still in place: Yes Reason Cath still needed: other (indicate) Assessment/Plan Assessment/Plan 81-year-old male who had presented with shortness of breath after recent aortic valve replacement surgery now managed as follows: 1. Acute on chronic respiratory failure secondary to CHF as well as significant left-sided pleural effusion 2. Left-sided pleural effusion with left-sided lower lobe atelectasis: cause unclear 3. Mild acute on chronic diastolic CHF with chronic pulmonary hypertension and preserved ejection fraction 4. Small pericardial effusion per echo 5. Status post bioprosthetic aortic valve placement secondary to severe aortic stenosis 6. Diabetes mellitus type 2 A!C: 7. Afib with RVR 8. hypertension: Controlled 9. Chronic kidney disease: creatinine wnl 10. Chronic gout: without exacerbation 11. Left hip pain: Patient's pelvic x-ray did not show any acute signs of fracture: resolved? 12. 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 Outpt mgt 14. Sacral ulcer 15. Gram Negative noris UTI 16. COPD: Stable PLAN: * Replace lytes/ will likely need thoracentesis / * commence abx for UTI * May need dose tapering for antihypertensives, will defer to cards * Supportive care . ?Possible palliative consult * Await Cardiology and pulmonary recs * Further interventions per course * DVT and GI prophylaxis: On Eliquis, Protonix. Exam/Review of Systems Vital Signs Vitals Vital Signs Date Time Temp Pulse Resp B/P Pulse Ox O2 Delivery O2 Flow Rate FiO2 08/04/16 11:32 98.1 76 18 102/72 93 08/04/16 05:00 2.0 08/03/16 20:00 Nasal Cannula 08/03/16 18:04 Intake and Output 08/03/16 08/03/16 08/04/16 15:00 23:00 07:00 Intake Total 410 ml 240 ml Output Total 500 ml 950 ml Balance -90 ml -710 ml Exam GENERAL: alert, pleasantly confused, no distress HEENT: MAIKEL, LUNGS: diffusely diminished L>>R and coarse BS HEART: S1, S2. +click. ABDOMEN: Soft, non distended, Normoactive bowel sounds. GENITOURINARY: Normal female external genitalia, [place] to bedside drainage EXTREMITIES: Mild 1+ nonpitting edema bilaterally, also some hand edema bilaterally NEUROLOGIC: alert, lethargic Results Result Diagram: 08/04/16 0651 08/04/16 0651 Results 24 hrs Laboratory Tests Test 08/03/16 12:03 08/03/16 17:23 08/03/16 18:45 08/03/16 21:24 Bedside Glucose 186 190 158 Troponin I < 0.012 Test 08/04/16 01:40 08/04/16 01:42 08/04/16 06:14 08/04/16 06:51 Troponin I 0.016 0.021 Bedside Glucose 152 158 White Blood Count 8.5 Red Blood Count 3.73 L Hemoglobin 11.0 L Hematocrit 34.3 L Mean Corpuscular Volume 92.0 Mean Corpuscular Hemoglobin 29.5 Mean Corpuscular Hemoglobin Concent 32.1 Red Cell Distribution Width 14.6 H Platelet Count 243 Mean Platelet Volume 11.3 H Neutrophils % 71.0 Lymphocytes % 13.7 L Monocytes % 8.5 Eosinophils % 5.3 Basophils % 0.7 Nucleated Red Blood Cells % 0.0 Neutrophils # 6.0 Lymphocytes # 1.2 Monocytes # 0.7 Eosinophils # 0.5 Basophils # 0.1 Nucleated Red Blood Cells # 0.0 Sodium Level 133 L Potassium Level 4.0 Chloride Level 94 L Carbon Dioxide Level 33 H Anion Gap 10 # Blood Urea Nitrogen 14 Creatinine 0.73 Glucose Level 134 Calcium Level 8.9 Magnesium Level 1.6 L Total Bilirubin 0.3 Direct Bilirubin 0.00 Indirect Bilirubin 0.3 Aspartate Amino Transf (AST/SGOT) 23 Alanine Aminotransferase (ALT/SGPT) 24 Alkaline Phosphatase 79 Total Protein 5.8 L Albumin 3.3 Globulin 2.50 Albumin/Globulin Ratio 1.32 Test 08/04/16 08:45 Bedside Glucose 156 Medications Medications Current Medications Ondansetron HCl (Zofran Inj) 4 mg Q6H PRN IV NAUSEA AND/OR VOMITING; Start at 05:30 Acetaminophen (Tylenol Tab) 650 mg Q6H PRN PO PAIN LEVEL 1-3 OR FEVER Last administered on 08/03/16t 19:16; Admin Dose 650 MG; Start 08/03/16 at 05:30 Allopurinol (Zyloprim) 300 mg DAILY PRN PO GOUT; Start 08/03/16 at 05:30 Aspirin (Halfprin) 81 mg DAILY PO Last administered on 08/04/16 08:51; Admin Dose 81 MG; Start 08/03/16 at 09:00 Atorvastatin Calcium (Lipitor) 40 mg QHS PO Last administered on 08/03/16 21: 09; Admin Dose 40 MG; Start 08/03/16 at 21:00 Diltiazem HCl (Cardizem Cd) 240 mg DAILY PO Last administered on 08/04/16 08: 52; Admin Dose 240 MG; Start 08/03/16 at 09:00 Docusate Sodium (Colace) 100 mg BID PO Last administered on 08/04/16 08:50; Admin Dose 100 MG; Start 08/03/16 at 09:00 Duloxetine HCl (Cymbalta) 60 mg DAILY PO Last administered on 08/04/16 08:51; Admin Dose 60 MG; Start 08/03/16 at 09:00 Guaifenesin/ Dextromethorphan (Robitussin Dm Liquid Cup) 15 ml Q6H PRN PO COUGH ; Start 08/03/16 at 05:30 Insulin Glargine (Lantus) 25 unit QHS SC Last administered on 08/03/16 21:30; Admin Dose 25 UNIT; Start 08/03/16 at 21:00 Losartan Potassium (Cozaar) 100 mg DAILY PO Last administered on 08/04/16 08: 51; Admin Dose 100 MG; Start 08/03/16 at 09:00 Zinc Sulfate (Zinc Sulfate) 220 mg DAILY PO Last administered on 08/04/16 08: 53; Admin Dose 220 MG; Start 08/03/16 at 09:00 Ascorbic Acid (Vitamin C) 500 mg BID PO Last administered on 08/04/16 08:52; Admin Dose 500 MG; Start 08/03/16 at 09:00 Insulin Aspart (Novolog Insulin Pen) NOVOLOG *MILD* ALGORI... Q4 SC Last administered on 08/04/16 09:18; Admin Dose 1 UNIT; Start 08/03/16 at 09:00 Miscellaneous Information 1 ea NOTE XX ; Start 08/03/16 at 06:00 Glucose (Glutose) 15 gm Q15M PRN PO DECREASED GLUCOSE; Start 08/03/16 at 06:00 Glucose (Glutose) 22.5 gm Q15M PRN PO DECREASED GLUCOSE; Start 08/03/16 at 06: 00 Dextrose (D50w Syringe) 25 ml Q15M PRN IV DECREASED GLUCOSE; Start 08/03/16 at 06:00 Dextrose (D50w Syringe) 50 ml Q15M PRN IV DECREASED GLUCOSE; Start 08/03/16 at 06:00 Glucagon (Glucagen) 1 mg Q15M PRN IM DECREASED GLUCOSE; Start 08/03/16 at 06:00 Glucose (Glutose) 15 gm Q15M PRN BUCCAL DECREASED GLUCOSE; Start 08/03/16 at 06 :00 Phenazopyridine HCl (Pyridium) 100 mg BID PO Last administered on 08/04/16 08: 52; Admin Dose 100 MG; Start 08/03/16 at 09:00 Carvedilol (Coreg) 12.5 mg BID PO Last administered on 08/03/16 21:20; Admin Dose 12.5 MG; Start 08/03/16 at 21:00 Metoprolol Tartrate 5 mg 5 mg Q4H PRN IV HR>110 Hold SBP<100; Start 08/03/16 at 14:30 Ceftriaxone Sodium 50 ml @ 100 mls/hr Q24H IVPB Last administered on 16:44; Admin Dose 100 MLS/HR; Start 08/03/16 at 15:30 Fluconazole (Diflucan 200 Mg/ NS (Pmx)) 100 ml @ 100 mls/hr Q24H IVPB Last administered on 08/03/16 18:11; Admin Dose 100 MLS/HR; Start 08/03/16 at 17:00 Pregabalin (Lyrica) 100 mg QHS PO Last administered on 08/03/16 21:20; Admin Dose 100 MG; Start 08/03/16 at 21:00 Acetaminophen/ Hydrocodone Bitart ([place] (5/325)) 1 tab Q4H PRN PO PAIN Last administered on 08/04/16 08:50; Admin Dose 1 TAB; Start 08/03/16 at 22:00 Collagenase (Santyl) 1 applic DAILY TOP Last administered on 6/28/17at 09:15; Admin Dose 1 APPLIC; Start 08/03/16 at 21:56 Collagenase (Santyl) 1 applic PRN PRN TOP WOUND CARE; Start 08/03/16 at 22:00 Apixaban (Eliquis) 5 mg BID PO ; Start 08/04/16 at 21:00 Pantoprazole 40 mg 40 mg DAILY@06 PO ; Start 08/05/16 at 06:00 Magnesium Sulfate (Magnesium Sulfate 2 Gm/50 ml) 50 ml @ 25 mls/hr ONCE ONCE IVPB ; Start 08/04/16 at 12:00; Stop 08/04/16 at 13:59; Status UNV Procedures Procedures Echo Conclusions 1. Hyperdynamic left ventricular systolic function. Normal left ventricular cavity size. Moderate concentric left ventricular hypertrophy. Ejection fraction is visually estimated at 60 %. Tissue Doppler/Mitral Doppler indices are consistent with impaired relaxation (Stage I diastolic dysfunction). 2. Mitral valve leaflets appear mildly thickened. Mild mitral annular calcification. Trace mitral regurgitation. 3. Bioprosthetic aortic valve replacement. Aortic valve Max velocity 3.53 m/sec. Max PG 50.00 mmHg. Mean PG 30.00 mmHg. No aortic regurgitation. 4. Normal appearance of the tricuspid valve. Estimated peak PA systolic pressure 56 mmHg. There is mild tricuspid regurgitation. 5. Small pericardial effusion. Pleural effusion seen. Electronically Signed By: Billy Aguirre 03-Aug-2016 17:53:31 -0700 CAESAR BROWN Aug 04, 2016 12:03
[2016-08-04 12:36] LABS: T3 UPTAKE 43.9 % (23.5-40.5)
[2016-08-04] MEDS ORDERED: HYDROmorphONE 1 MG/ML SYG IV PRN (12:45)
[2016-08-04 12:50] LABS: THYROID STIMULATING HORMONE 5.71 MIU/L (0.465-4.680)
--- NOTE | 2016-08-04 14:03 | CONS ---
Date/Time of Note Date/Time of Note DATE: 08/04/16 TIME: 13:57 Assessment/Plan Assessment/Plan Additional Assessment/Plan Chest x-ray was reviewed from yesterday which is showing left pleural effusion. CT scan of the chest also showing similar findings. Assessment recommendations; 1. Patient admitted with shortness of breath due to left pleural effusion. 2. Recent aortic valve surgery. 3. Chronic atrial ablation. 4. Chronic renal insufficiency. 5. Diabetes. 6. Hypertension. Continue current treatment. Obtain ultrasound-guided left thoracentesis. Consultation Date/Type/Reason Admit Date/Time Aug 03, 2016 at 01:10 Date of Consultation: Aug 04, 2016 Type of Consultation: Pulmonary Reason for Consultation Pulmonary consultation requested for evaluation of left pleural effusion. History of present illness; patient is a very pleasant 81-year-old white lady who came into the emergency room yesterday with complaint of shortness of breath going on for the last few days. Upon evaluation a chest x-ray was done which is showing left pleural effusion. Patient subsequently had a CT of the chest done as well which is not showing any PE however identified is a left pleural effusion which is moderate in size. The patient is reporting shortness of breath upon exertion and according to her she was fine until 2 days ago when the symptoms started. Patient denies any chest pain, fever, chills. Any coughing or hemoptysis. Past medical history; 1. Patient with a history of recent aortic valve surgery. Maintained on chronic anti-coagulation. 2. History of diabetes. 3. History of hypertension. 4. Patient also describing what appears to be pericardial window placement. 5. Renal insufficiency. Medications; reviewed. Allergies; nonsteroidal anti-inflammatory medications. Social history; patient has a remote history of smoking. No alcohol or drug abuse. Family history; she is a she has had 4 children one . 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 Review of systems; denies any headache, visual changes, sinus symptoms. Denies any chest pain. Complains of occasional shortness of breath. Denies any coughing or sputum production. Denies any hemoptysis. Denies any abdominal pain, nausea vomiting. Denies any edema. Denies any orthopnea. Patient has steady weight. Denies any melena hematochezia. General exam; elderly woman, awake alert currently in no distress. Constitutional: other (lethargic) Eyes: no complaints ENT: no complaints Respiratory: shortness of breath Cardiovascular: chest pain, no complaints Gastrointestinal: no complaints Musculoskeletal: bone/joint pain Skin: no complaints Neurologic: confusion Endocrine: no complaints Psychological: no complaints Past Medical History Medical History: hypertension Social History Alcohol Use: none Smoking Status: Former smoker Drug Use: none Exam/Review of Systems Vital Signs Vitals Vital Signs Date Time Temp Pulse Resp B/P Pulse Ox O2 Delivery O2 Flow Rate FiO2 08/04/16 12:21 121 08/04/16 11:32 98.1 18 102/72 93 08/04/16 08:00 Nasal Cannula 2.0 08/03/16 18:04 Intake and Output 08/03/16 08/03/16 08/04/16 15:00 23:00 07:00 Intake Total 410 ml 240 ml Output Total 500 ml 950 ml Balance -90 ml -710 ml Exam HEENT exam; supple neck, no JVD. No lymphadenopathy. Midline trachea. No thyromegaly. Patient has dentures . Has intraocular lens implants. Chest exam; diminished breath sound left lower lobe breath of the lung yee are clear. Irregular rhythm. No murmurs. Abdomen exam; soft, protuberant. Nontender. Bowel sounds audible. No organomegaly. Extremity exam; no peripheral edema. Pulses 1+ bilaterally. [employer] exam; no focal deficit. Results Result Diagram: 08/04/16 0651 08/04/16 0651 Results 24 hrs Laboratory Tests Test 08/03/16 17:23 08/03/16 18:45 08/03/16 21:24 08/04/16 01:40 Bedside Glucose 190 158 Troponin I < 0.012 0.016 Test 08/04/16 01:42 08/04/16 06:14 08/04/16 06:51 08/04/16 08:45 Bedside Glucose 152 158 156 White Blood Count 8.5 Red Blood Count 3.73 L Hemoglobin 11.0 L Hematocrit 34.3 L Mean Corpuscular Volume 92.0 Mean Corpuscular Hemoglobin 29.5 Mean Corpuscular Hemoglobin Concent 32.1 Red Cell Distribution Width 14.6 H Platelet Count 243 Mean Platelet Volume 11.3 H Neutrophils % 71.0 Lymphocytes % 13.7 L Monocytes % 8.5 Eosinophils % 5.3 Basophils % 0.7 Nucleated Red Blood Cells % 0.0 Neutrophils # 6.0 Lymphocytes # 1.2 Monocytes # 0.7 Eosinophils # 0.5 Basophils # 0.1 Nucleated Red Blood Cells # 0.0 Sodium Level 133 L Potassium Level 4.0 Chloride Level 94 L Carbon Dioxide Level 33 H Anion Gap 10 # Blood Urea Nitrogen 14 Creatinine 0.73 Glucose Level 134 Calcium Level 8.9 Magnesium Level 1.6 L Total Bilirubin 0.3 Direct Bilirubin 0.00 Indirect Bilirubin 0.3 Aspartate Amino Transf (AST/SGOT) 23 Alanine Aminotransferase (ALT/SGPT) 24 Alkaline Phosphatase 79 Troponin I 0.021 Total Protein 5.8 L Albumin 3.3 Globulin 2.50 Albumin/Globulin Ratio 1.32 Thyroid Stimulating Hormone (TSH) 5.710 H Free Thyroxine Index 2.20 Thyroxine (T4) 5.0 L Triiodothyronine (T3) Uptake 43.9 H Test 08/04/16 12:32 Bedside Glucose 161 Medications Medications Current Medications Ondansetron HCl (Zofran Inj) 4 mg Q6H PRN IV NAUSEA AND/OR VOMITING; Start at 05:30 Acetaminophen (Tylenol Tab) 650 mg Q6H PRN PO PAIN LEVEL 1-3 OR FEVER Last administered on 08/03/16 19:16; Admin Dose 650 MG; Start 08/03/16 at 05:30 Allopurinol (Zyloprim) 300 mg DAILY PRN PO GOUT; Start 08/03/16 at 05:30 Aspirin (Halfprin) 81 mg DAILY PO Last administered on 08/04/16 08:51; Admin Dose 81 MG; Start 08/03/16 at 09:00 Atorvastatin Calcium (Lipitor) 40 mg QHS PO Last administered on 08/03/16 21: 09; Admin Dose 40 MG; Start 08/03/16 at 21:00 Diltiazem HCl (Cardizem Cd) 240 mg DAILY PO Last administered on 08/04/16 08: 52; Admin Dose 240 MG; Start 08/03/16 at 09:00 Docusate Sodium (Colace) 100 mg BID PO Last administered on 08/04/16 08:50; Admin Dose 100 MG; Start 08/03/16 at 09:00 Duloxetine HCl (Cymbalta) 60 mg DAILY PO Last administered on 08/04/16 08:51; Admin Dose 60 MG; Start 08/03/16 at 09:00 Guaifenesin/ Dextromethorphan (Robitussin Dm Liquid Cup) 15 ml Q6H PRN PO COUGH ; Start 08/03/16 at 05:30 Insulin Glargine (Lantus) 25 unit QHS SC Last administered on 08/03/16 21:30; Admin Dose 25 UNIT; Start 08/03/16 at 21:00 Losartan Potassium (Cozaar) 100 mg DAILY PO Last administered on 08/04/16 08: 51; Admin Dose 100 MG; Start 08/03/16 at 09:00 Zinc Sulfate (Zinc Sulfate) 220 mg DAILY PO Last administered on 08/04/16 08: 53; Admin Dose 220 MG; Start 08/03/16 at 09:00 Ascorbic Acid (Vitamin C) 500 mg BID PO Last administered on 08/04/16 08:52; Admin Dose 500 MG; Start 08/03/16 at 09:00 Miscellaneous Information 1 ea NOTE XX ; Start 08/03/16 at 06:00 Glucose (Glutose) 15 gm Q15M PRN PO DECREASED GLUCOSE; Start 08/03/16 at 06:00 Glucose (Glutose) 22.5 gm Q15M PRN PO DECREASED GLUCOSE; Start 08/03/16 at 06: 00 Dextrose (D50w Syringe) 25 ml Q15M PRN IV DECREASED GLUCOSE; Start 08/03/16 at 06:00 Dextrose (D50w Syringe) 50 ml Q15M PRN IV DECREASED GLUCOSE; Start 08/03/16 at 06:00 Glucagon (Glucagen) 1 mg Q15M PRN IM DECREASED GLUCOSE; Start 08/03/16 at 06:00 Glucose (Glutose) 15 gm Q15M PRN BUCCAL DECREASED GLUCOSE; Start 08/03/16 at 06 :00 Phenazopyridine HCl (Pyridium) 100 mg BID PO Last administered on 08/04/16 08: 52; Admin Dose 100 MG; Start 08/03/16 at 09:00 Carvedilol (Coreg) 12.5 mg BID PO Last administered on 08/03/16 21:20; Admin Dose 12.5 MG; Start 08/03/16 at 21:00 Metoprolol Tartrate 5 mg 5 mg Q4H PRN IV HR>110 Hold SBP<100; Start 08/03/16 at 14:30 Ceftriaxone Sodium 50 ml @ 100 mls/hr Q24H IVPB Last administered on 16:44; Admin Dose 100 MLS/HR; Start 08/03/16 at 15:30 Fluconazole (Diflucan 200 Mg/ NS (Pmx)) 100 ml @ 100 mls/hr Q24H IVPB Last administered on 08/03/16 18:11; Admin Dose 100 MLS/HR; Start 08/03/16 at 17:00 Pregabalin (Lyrica) 100 mg QHS PO Last administered on 08/03/16 21:20; Admin Dose 100 MG; Start 08/03/16 at 21:00 Acetaminophen/ Hydrocodone Bitart ([place] (5/325)) 1 tab Q4H PRN PO PAIN Last administered on 08/04/16 08:50; Admin Dose 1 TAB; Start 08/03/16 at 22:00 Collagenase (Santyl) 1 applic DAILY TOP Last administered on 08/04/16 09:15; Admin Dose 1 APPLIC; Start 08/03/16 at 21:56 Collagenase (Santyl) 1 applic PRN PRN TOP WOUND CARE; Start 08/03/16 at 22:00 Apixaban (Eliquis) 5 mg BID PO ; Start 08/04/16 at 21:00 Pantoprazole 40 mg 40 mg DAILY@06 PO ; Start 08/05/16 at 06:00 Magnesium Sulfate (Magnesium Sulfate 2 Gm/50 ml) 50 ml @ 25 mls/hr ONCE ONCE IVPB Last administered on 08/04/16 12:55; Admin Dose 25 MLS/HR; Start at 12:00; Stop 08/04/16 at 13:59 Hydromorphone HCl (Dilaudid) 0.5 mg Q4H PRN IV PAIN Last administered on 12:56; Admin Dose 0.5 MG; Start 08/04/16 at 12:45 Diagnostic Test (Pha) (Accu-Chek) 1 ea 02 XX ; Start 08/05/16 at 02:00 RON MUÑOZ Aug 04, 2016 14:03
--- NOTE | 2016-08-04 15:32 | CONS ---
Date/Time of Note Date/Time of Note DATE: 08/04/16 TIME: 15:22 Assessment/Plan Assessment/Plan Chief Complaint/Hosp Course IMp: 1.CHF-by CT ? diastolic acute on chronic 2.AF with RVR-ongoing 3.H/O AVR-bioprosthetic 4.COPD 5.SOB 6. Coagulopathy 7. Anemia 8.Pericardial effusion- echo this admit with small effusion only Recc: -Tele -serial ecg's -Continue eliquis but decrease dose to 5 po bid -Continue coreg/dilt as tolerated -will give ivp digoxin additional -Gentle lasix diuresis as tolerated -Continue statin -hold losartan Problems: Consultation Date/Type/Reason Admit Date/Time Aug 03, 2016 at 15:32 Initial Consult Date 08/04/16 Type of Consultation: cardiology Reason for Consultation AF/pericardial effusion Referring Provider: SNEHAL AMANDA Exam/Review of Systems Vital Signs Vitals Vital Signs Date Time Temp Pulse Resp B/P Pulse Ox O2 Delivery O2 Flow Rate FiO2 08/04/16 12:21 121 08/04/16 11:32 98.1 18 102/72 93 08/04/16 08:00 Nasal Cannula 2.0 08/03/16 18:04 Intake and Output 08/03/16 08/03/16 08/04/16 15:00 23:00 07:00 Intake Total 410 ml 240 ml Output Total 500 ml 950 ml Balance -90 ml -710 ml Exam Review of Systems: CONSTITUTIONAL: No fevers, chills. PULMONARY: No sob CARDIOVASCULAR: No chest pain/palpitations GASTROINTESTINAL: No nausea/vomiting. GENITOURINARY: No hematuria/dysuria. MUSCULOSKELETAL: No myagias/arthalgias. PSYCHIATRIC: The patient denies depression. NEUROLOGIC: lethargic Constitutional: alert Psych: no complaints Head: normocephalic ENMT: mucosa pink and moist Neck: jvd (8 cm water), supple Respiratory: diminished breath sounds Cardiovascular: irregular rhythm (tachycardia, ) Gastrointestinal: non-tender, soft Musculoskeletal: muscle tone (normal) Extremities: edema (trace/B) Neurological: other (No focal deficits) Results Result Diagram: 08/04/16 0651 08/04/16 0651 Results 24 hrs Laboratory Tests Test 08/03/16 17:23 08/03/16 18:45 08/03/16 21:24 08/04/16 01:40 Bedside Glucose 190 158 Troponin I < 0.012 0.016 Test 08/04/16 01:42 08/04/16 06:14 08/04/16 06:51 08/04/16 08:45 Bedside Glucose 152 158 156 White Blood Count 8.5 Red Blood Count 3.73 L Hemoglobin 11.0 L Hematocrit 34.3 L Mean Corpuscular Volume 92.0 Mean Corpuscular Hemoglobin 29.5 Mean Corpuscular Hemoglobin Concent 32.1 Red Cell Distribution Width 14.6 H Platelet Count 243 Mean Platelet Volume 11.3 H Neutrophils % 71.0 Lymphocytes % 13.7 L Monocytes % 8.5 Eosinophils % 5.3 Basophils % 0.7 Nucleated Red Blood Cells % 0.0 Neutrophils # 6.0 Lymphocytes # 1.2 Monocytes # 0.7 Eosinophils # 0.5 Basophils # 0.1 Nucleated Red Blood Cells # 0.0 Sodium Level 133 L Potassium Level 4.0 Chloride Level 94 L Carbon Dioxide Level 33 H Anion Gap 10 # Blood Urea Nitrogen 14 Creatinine 0.73 Glucose Level 134 Calcium Level 8.9 Magnesium Level 1.6 L Total Bilirubin 0.3 Direct Bilirubin 0.00 Indirect Bilirubin 0.3 Aspartate Amino Transf (AST/SGOT) 23 Alanine Aminotransferase (ALT/SGPT) 24 Alkaline Phosphatase 79 Troponin I 0.021 Total Protein 5.8 L Albumin 3.3 Globulin 2.50 Albumin/Globulin Ratio 1.32 Thyroid Stimulating Hormone (TSH) 5.710 H Free Thyroxine Index 2.20 Thyroxine (T4) 5.0 L Triiodothyronine (T3) Uptake 43.9 H Test 08/04/16 12:32 Bedside Glucose 161 Medications Medications Current Medications Ondansetron HCl (Zofran Inj) 4 mg Q6H PRN IV NAUSEA AND/OR VOMITING; Start at 05:30 Acetaminophen (Tylenol Tab) 650 mg Q6H PRN PO PAIN LEVEL 1-3 OR FEVER Last administered on 08/03/16 19:16; Admin Dose 650 MG; Start 08/03/16 at 05:30 Allopurinol (Zyloprim) 300 mg DAILY PRN PO GOUT; Start 08/03/16 at 05:30 Aspirin (Halfprin) 81 mg DAILY PO Last administered on 08/04/16 08:51; Admin Dose 81 MG; Start 08/03/16 at 09:00 Atorvastatin Calcium (Lipitor) 40 mg QHS PO Last administered on 08/03/16 21: 09; Admin Dose 40 MG; Start 08/03/16 at 21:00 Diltiazem HCl (Cardizem Cd) 240 mg DAILY PO Last administered on 08/04/16 08: 52; Admin Dose 240 MG; Start 08/03/16 at 09:00 Docusate Sodium (Colace) 100 mg BID PO Last administered on 08/04/16 08:50; Admin Dose 100 MG; Start 08/03/16 at 09:00 Duloxetine HCl (Cymbalta) 60 mg DAILY PO Last administered on 08/04/16 08:51; Admin Dose 60 MG; Start 08/03/16 at 09:00 Guaifenesin/ Dextromethorphan (Robitussin Dm Liquid Cup) 15 ml Q6H PRN PO COUGH ; Start 08/03/16 at 05:30 Insulin Glargine (Lantus) 25 unit QHS SC Last administered on 08/03/16 21:30; Admin Dose 25 UNIT; Start 08/03/16 at 21:00 Losartan Potassium (Cozaar) 100 mg DAILY PO Last administered on 08/04/16 08: 51; Admin Dose 100 MG; Start 08/03/16 at 09:00 Zinc Sulfate (Zinc Sulfate) 220 mg DAILY PO Last administered on 08/04/16 08: 53; Admin Dose 220 MG; Start 08/03/16 at 09:00 Ascorbic Acid (Vitamin C) 500 mg BID PO Last administered on 08/04/16 08:52; Admin Dose 500 MG; Start 08/03/16 at 09:00 Miscellaneous Information 1 ea NOTE XX ; Start 08/03/16 at 06:00 Glucose (Glutose) 15 gm Q15M PRN PO DECREASED GLUCOSE; Start 08/03/16 at 06:00 Glucose (Glutose) 22.5 gm Q15M PRN PO DECREASED GLUCOSE; Start 08/03/16 at 06: 00 Dextrose (D50w Syringe) 25 ml Q15M PRN IV DECREASED GLUCOSE; Start 08/03/16 at 06:00 Dextrose (D50w Syringe) 50 ml Q15M PRN IV DECREASED GLUCOSE; Start 08/03/16 at 06:00 Glucagon (Glucagen) 1 mg Q15M PRN IM DECREASED GLUCOSE; Start 08/03/16 at 06:00 Glucose (Glutose) 15 gm Q15M PRN BUCCAL DECREASED GLUCOSE; Start 08/03/16 at 06 :00 Phenazopyridine HCl (Pyridium) 100 mg BID PO Last administered on 08/04/16 08: 52; Admin Dose 100 MG; Start 08/03/16 at 09:00 Carvedilol (Coreg) 12.5 mg BID PO Last administered on 08/03/16 21:20; Admin Dose 12.5 MG; Start 08/03/16 at 21:00 Metoprolol Tartrate 5 mg 5 mg Q4H PRN IV HR>110 Hold SBP<100; Start 08/03/16 at 14:30 Ceftriaxone Sodium (Rocephin) 50 ml @ 100 mls/hr Q24H IVPB Last administered on 08/03/16 16:44; Admin Dose 100 MLS/HR; Start 08/03/16 at 15:30 Pregabalin (Lyrica) 100 mg QHS PO Last administered on 08/03/16 21:20; Admin Dose 100 MG; Start 08/03/16 at 21:00 Acetaminophen/ Hydrocodone Bitart ([place] (5/325)) 1 tab Q4H PRN PO PAIN Last administered on 08/04/16 08:50; Admin Dose 1 TAB; Start 08/03/16 at 22:00 Collagenase (Santyl) 1 applic DAILY TOP Last administered on 08/04/16 09:15; Admin Dose 1 APPLIC; Start 08/03/16 at 21:56 Collagenase (Santyl) 1 applic PRN PRN TOP WOUND CARE; Start 08/03/16 at 22:00 Apixaban (Eliquis) 5 mg BID PO ; Start 08/04/16 at 21:00 Pantoprazole (Protonix Tab) 40 mg DAILY@06 PO ; Start 08/05/16 at 06:00 Hydromorphone HCl (Dilaudid) 0.5 mg Q4H PRN IV PAIN Last administered on 12:56; Admin Dose 0.5 MG; Start 08/04/16 at 12:45 Diagnostic Test (Pha) (Accu-Chek) 1 ea 02 XX ; Start 08/05/16 at 02:00 Levothyroxine Sodium (Synthroid) 25 mcg DAILY@06 PO ; Start 08/05/16 at 06:00 SCARLET WALTERS Aug 04, 2016 15:32
[2016-08-04] MEDS ORDERED: DIGOXIN 500 MCG INJ IV ONE (16:00)
[2016-08-04] MEDS ORDERED: morphine 10 MG INJ IV PRN (16:00)
[2016-08-04] MEDS: CEFTRIAXONE 1 GM/50 ML (PMX) 50 ML IVPB SCH (16:24)
[2016-08-04] MEDS ORDERED: INSULIN ASPART [NOVOLOG] 3 ML PEN SC SCH (17:25)
[2016-08-04] MEDS: Insulin NOVOLOG SS MILD Algorithm (SS with meals and bedtime) SC SCH ×2 (17:58→21:00)
[2016-08-04] MEDS: ATORVASTATIN 40 MG TAB PO SCH (21:21)
[2016-08-04] MEDS: AMIODARONE 200 MG TAB PO SCH (21:24)
[2016-08-04] MEDS: ATENOLOL 25 MG TAB PO SCH (21:24)
[2016-08-04] MEDS: INSULIN GLARGINE [LANtus] 3 ML PEN SC SCH (21:49)
[2016-08-04] MEDS ORDERED: AL HYDROX/MG HYDROX/SIMETH 30 ML CUP PO ONE (22:30)
[2016-08-04] MEDS: PREGABALIN 25 MG CAP PO SCH (22:54)
[2016-08-05] VITALS (13 sets, daily range): BP systolic 125–167; BP diastolic 63–82; PULSE 54–82; RESP 18–19
[2016-08-05] MEDS: ACCUCHECK AT 2AM (Patients on SS coverage) XX SCH (01:15)
[2016-08-05] MEDS ORDERED: LEVOTHYROXINE 25 MCG TAB PO SCH (06:00)
[2016-08-05] MEDS: PANTOPRAZOLE (EC) 40 MG TAB PO SCH (06:50)
[2016-08-05] MEDS: FUROSEMIDE 20 MG INJ IV SCH ×2 (06:52→17:30)
[2016-08-05 07:35] LABS: ADD SCAN DIFF NO
[2016-08-05 07:41] LABS: BASOPHIL # 0.1 10^3/ul (0.0-0.1); BASOPHILS % 1.1 % (0.0-2.0); EOSINOPHILS # 0.6 10^3/ul (0.0-0.5); EOSINOPHILS % 6.5 % (0.0-7.0); HEMATOCRIT 38.2 % (37.0-47.0); HEMOGLOBIN 11.9 g/dl (12.0-16.0); LYMPHOCYTES # 1.6 10^3/ul (0.8-2.9); LYMPHOCYTES % 18.3 % (15.0-51.0); MEAN CORPUSCULAR HEMOGLOBIN 28.9 pg (29.0-33.0); MEAN CORPUSCULAR HGB CONC 31.2 g/dl (32.0-37.0); MEAN CORPUSCULAR VOLUME 92.7 fl (82.0-101.0); MEAN PLATELET VOLUME 11.2 fl (7.4-10.4); MONOCYTE # 0.9 10^3/ul (0.3-0.9); MONOCYTES % 10.2 % (0.0-11.0); NEUTROPHIL # 5.4 10^3/ul (1.6-7.5); NEUTROPHILS % 63.1 % (39.0-77.0); PLATELET COUNT 278 10^3/UL (140-415); RED BLOOD COUNT 4.12 10^6/ul (4.20-5.40); WHITE BLOOD COUNT 8.6 10^3/ul (4.8-10.8)
[2016-08-05 07:59] LABS: INR 1.6; PROTIME 19.2 Sec (12.2-14.2); PT RATIO 1.5
[2016-08-05 08:09] LABS: CALCIUM 9.3 mg/dl (8.4-10.2); CREATININE 0.68 mg/dl (0.44-1.00); MAGNESIUM 1.9 mg/dl (1.7-2.5)
[2016-08-05] MEDS: Insulin NOVOLOG SS MILD Algorithm (SS with meals and bedtime) SC SCH ×4 (08:50→21:00)
[2016-08-05] MEDS: COLLAGENASE 30 GM TUBE TOP SCH (09:00)
--- NOTE | 2016-08-05 09:20 | CONS ---
Date/Time of Note Date/Time of Note DATE: 08/05/16 TIME: 09:14 Consultation Date/Type/Reason Admit Date/Time Aug 03, 2016 at 15:32 Date of Consultation: Aug 04, 2016 Type of Consultation: PALLIATIVE cARE Hx of Present Illness Chart reviewed patient examined with her family member in attendance.. Admitted to [facility] with increasing shortness of breath found have bilateral pleural effusion congestive heart failure has been treated aggressively and is generally improving.Other comorbid medical problems include history of diabetes chronic obstructive pulmonary disease hypertension morbid obesity. Patient is a good historian as well as her daughter they're very pleasant cooperative. She is in the process of having a procedure at this time and I have scheduled time to speak with family members with patient on ongoing supportive care possibly palliation of care when patient returns home. Full note with palliative care issues will be addressed in more detailed follow-up note. Constitutional: other (lethargic) Eyes: no complaints ENT: no complaints Respiratory: shortness of breath Cardiovascular: chest pain, no complaints Gastrointestinal: no complaints Musculoskeletal: bone/joint pain Skin: no complaints Neurologic: confusion Endocrine: no complaints Psychological: no complaints Past Medical History Medical History: hypertension Social History Alcohol Use: none Smoking Status: Former smoker Drug Use: none Exam/Review of Systems Vital Signs Vitals Vital Signs Date Time Temp Pulse Resp B/P Pulse Ox O2 Delivery O2 Flow Rate FiO2 08/05/16 08:21 63 08/05/16 07:55 Nasal Cannula 2.0 08/05/16 07:16 98.0 19 167/75 08/05/16 03:24 97 08/03/16 18:04 Intake and Output 08/04/16 08/04/16 08/05/16 15:00 23:00 07:00 Intake Total 950 ml Balance 950 ml Exam Examination deferred till tomorrow Results Result Diagram: 08/05/16 0700 08/05/16 0700 Results 24 hrs Laboratory Tests Test 08/04/16 12:32 08/04/16 17:52 08/04/16 21:33 08/05/16 01:11 Bedside Glucose 161 181 192 179 Test 08/05/16 07:00 08/05/16 08:16 White Blood Count 8.6 Red Blood Count 4.12 L Hemoglobin 11.9 L Hematocrit 38.2 Mean Corpuscular Volume 92.7 Mean Corpuscular Hemoglobin 28.9 L Mean Corpuscular Hemoglobin Concent 31.2 L Red Cell Distribution Width 15.0 H Platelet Count 278 Mean Platelet Volume 11.2 H Neutrophils % 63.1 Lymphocytes % 18.3 Monocytes % 10.2 Eosinophils % 6.5 Basophils % 1.1 Nucleated Red Blood Cells % 0.0 Neutrophils # 5.4 Lymphocytes # 1.6 Monocytes # 0.9 Eosinophils # 0.6 H Basophils # 0.1 Nucleated Red Blood Cells # 0.0 Prothrombin Time 19.2 H Prothrombin Time Ratio 1.5 INR International Normalized Ratio 1.60 Sodium Level 138 Potassium Level 4.0 Chloride Level 96 L Carbon Dioxide Level 32 H Anion Gap 14 Blood Urea Nitrogen 17 Creatinine 0.68 Glucose Level 155 Calcium Level 9.3 Magnesium Level 1.9 Bedside Glucose 163 Medications Medications Current Medications Ondansetron HCl (Zofran Inj) 4 mg Q6H PRN IV NAUSEA AND/OR VOMITING; Start at 05:30 Acetaminophen (Tylenol Tab) 650 mg Q6H PRN PO PAIN LEVEL 1-3 OR FEVER Last administered on 08/03/16 19:16; Admin Dose 650 MG; Start 08/03/16 at 05:30 Allopurinol (Zyloprim) 300 mg DAILY PRN PO GOUT; Start 08/03/16 at 05:30 Aspirin (Halfprin) 81 mg DAILY PO Last administered on 08/04/16 08:51; Admin Dose 81 MG; Start 08/03/16 at 09:00 Atorvastatin Calcium (Lipitor) 40 mg QHS PO Last administered on 08/04/16 21: 21; Admin Dose 40 MG; Start 08/03/16 at 21:00 Diltiazem HCl (Cardizem Cd) 240 mg DAILY PO Last administered on 08/04/16 08: 52; Admin Dose 240 MG; Start 08/03/16 at 09:00 Docusate Sodium (Colace) 100 mg BID PO Last administered on 08/04/16 21:25; Admin Dose 100 MG; Start 08/03/16 at 09:00 Duloxetine HCl (Cymbalta) 60 mg DAILY PO Last administered on 08/04/16 08:51; Admin Dose 60 MG; Start 08/03/16 at 09:00 Guaifenesin/ Dextromethorphan (Robitussin Dm Liquid Cup) 15 ml Q6H PRN PO COUGH ; Start 08/03/16 at 05:30 Insulin Glargine (Lantus) 25 unit QHS SC Last administered on 08/04/16 21:49; Admin Dose 25 UNIT; Start 08/03/16 at 21:00 Zinc Sulfate (Zinc Sulfate) 220 mg DAILY PO Last administered on 08/04/16 08: 53; Admin Dose 220 MG; Start 08/03/16 at 09:00 Ascorbic Acid (Vitamin C) 500 mg BID PO Last administered on 08/04/16 21:31; Admin Dose 500 MG; Start 08/03/16 at 09:00 Miscellaneous Information 1 ea NOTE XX ; Start 08/03/16 at 06:00 Glucose (Glutose) 15 gm Q15M PRN PO DECREASED GLUCOSE; Start 08/03/16 at 06:00 Glucose (Glutose) 22.5 gm Q15M PRN PO DECREASED GLUCOSE; Start 08/03/16 at 06: 00 Dextrose (D50w Syringe) 25 ml Q15M PRN IV DECREASED GLUCOSE; Start 08/03/16 at 06:00 Dextrose (D50w Syringe) 50 ml Q15M PRN IV DECREASED GLUCOSE; Start 08/03/16 at 06:00 Glucagon (Glucagen) 1 mg Q15M PRN IM DECREASED GLUCOSE; Start 08/03/16 at 06:00 Glucose (Glutose) 15 gm Q15M PRN BUCCAL DECREASED GLUCOSE; Start 08/03/16 at 06 :00 Phenazopyridine HCl (Pyridium) 100 mg BID PO Last administered on 08/04/16 22: 33; Admin Dose 100 MG; Start 08/03/16 at 09:00 Metoprolol Tartrate 5 mg 5 mg Q4H PRN IV HR>110 Hold SBP<100; Start 08/03/16 at 14:30 Ceftriaxone Sodium (Rocephin) 50 ml @ 100 mls/hr Q24H IVPB Last administered on 08/04/16 16:24; Admin Dose 100 MLS/HR; Start 08/03/16 at 15:30 Pregabalin (Lyrica) 100 mg QHS PO Last administered on 08/04/16 22:54; Admin Dose 100 MG; Start 08/03/16 at 21:00 Acetaminophen/ Hydrocodone Bitart ([place] (5/325)) 1 tab Q4H PRN PO PAIN Last administered on 08/04/16 22:32; Admin Dose 1 TAB; Start 08/03/16 at 22:00 Collagenase (Santyl) 1 applic DAILY TOP Last administered on 08/04/16 09:15; Admin Dose 1 APPLIC; Start 08/03/16 at 21:56 Collagenase (Santyl) 1 applic PRN PRN TOP WOUND CARE; Start 08/03/16 at 22:00 Apixaban (Eliquis) 5 mg BID PO Last administered on 08/04/16 22:32; Admin Dose 5 MG; Start 08/04/16 at 21:00 Pantoprazole (Protonix Tab) 40 mg DAILY@06 PO Last administered on 08/05/16 06 :50; Admin Dose 40 MG; Start 08/05/16 at 06:00 Hydromorphone HCl (Dilaudid) 0.5 mg Q4H PRN IV PAIN Last administered on 12:56; Admin Dose 0.5 MG; Start 08/04/16 at 12:45 Diagnostic Test (Pha) (Accu-Chek) 1 ea 02 XX ; Start 08/05/16 at 02:00 Amiodarone HCl (Cordarone) 200 mg BID PO Last administered on 08/04/16 21:24; Admin Dose 200 MG; Start 08/04/16 at 21:00 Atenolol (Tenormin) 25 mg BID PO Last administered on 08/04/16 21:24; Admin Dose 25 MG; Start 08/04/16 at 21:00 Hydralazine HCl (Apresoline) 25 mg Q6H PRN PO ELEVATED BLOOD PRESSURE Last administered on 08/05/16 08:19; Admin Dose 25 MG; Start 08/04/16 at 22:30 BRIGHT CAMPOS Aug 05, 2016 09:20
[2016-08-05] MEDS ORDERED: LIDOCAINE 1% (MPF) 5 ML VIAL ONE (09:42)
--- NOTE | 2016-08-05 10:27 | RADRPT ---
PROCEDURE: XR Chest. CLINICAL INDICATION: POST THORACENTESIS TECHNIQUE: Single frontal view of the chest was obtained. COMPARISON: Chest x-ray from 08/02/2016 and ultrasound-guided thoracentesis from 08/05/2016 FINDINGS: There is stable moderate to severe cardiomegaly. The aortic arch is calcified. The large left-sided pleural effusion seen previously has almost completely resolved with a retrocar diac opacity noted due to atelectasis, infiltrate, and / or small residual effusion. There is stable mild pulmonary vascular congestion. There is no pneumothorax. IMPRESSION: Status post left thoracentesis with almost complete resolution of the large left pleural effusion se en previously. A retrocardiac opacity is noted due to atelectasis, infiltrate, and / or a small res idual effusion. There is no pneumothorax. Stable cardiomegaly and mild pulmonary vascular congestion. RPTAT: EE Physician Julieta Date Time Electronically viewed and signed by Physician Julieta on 08/05/2016 10:26 /
[2016-08-05] MEDS: ZINC SULFATE 220 MG CAP PO SCH (10:32)
[2016-08-05] MEDS: ASCORBIC ACID 500 MG TAB PO SCH ×2 (10:32→21:08)
[2016-08-05] MEDS: PHENAZOPYRIDINE 100 MG TAB PO SCH (10:32)
[2016-08-05] MEDS: DILTIAZEM (CD) 240 MG CAP PO SCH (10:33)
[2016-08-05] MEDS: DULOXETINE 30 MG CAP DR PO SCH (10:33)
[2016-08-05] MEDS: ASPIRIN (EC) 81 MG TAB PO SCH (10:33)
[2016-08-05] MEDS: DOCUSATE SODIUM 100 MG CAP PO SCH ×2 (10:33→21:08)
[2016-08-05] MEDS: APIXABAN 5 MG TABLET PO SCH (10:33)
[2016-08-05] MEDS: AMIODARONE 200 MG TAB PO SCH ×2 (10:33→21:09)
[2016-08-05] MEDS: ATENOLOL 25 MG TAB PO SCH ×2 (10:35→21:09)
--- NOTE | 2016-08-05 11:09 | RADRPT ---
PROCEDURE: US guided left thoracentesis. CLINICAL INDICATION: Shortness of breath. Left pleural effusion. TECHNIQUE: Prior to the procedure, informed consent was obtained. The risks, benefits, and alternatives were e xplained to the patient or the patient's family, including but not limited to bleeding, infection, p ain, visceral or vascular damage, shock, pneumothorax, chest tube placement, air embolism, and . The patient or the patient's family understood the risks and the alternatives and wished to proce ed with the study. Informed written consent was obtained. A procedural pause was performed. The patient's name, date of , and procedure to be performed were verified. Ultrasound of the left hemithorax was performed in the axial and sagittal planes. A left pleural eff usion is noted. Utilizing ultrasound guidance, optimal location for entry to the pleural cavity was ascertained. The overlying skin was prepped and draped in the usual sterile fashion. Approximately 10 ml of 1% Xylocaine was injected locally for pain control. Using ultrasound guidance, a 5-Tamazight Yueh catheter was introduced into the left pleural space without difficulty. Fluid was aspirated. COMPARISON: None. FINDINGS: Initial ultrasound demonstrates fluid in the left pleural space. Approximately 1.55 liters of serou s fluid was aspirated and sent to the laboratory. IMPRESSION: 1. Satisfactory ultrasound-guided left thoracentesis. RPTAT: QQ .Derrell Darby MD, Date Time Electronically viewed and signed by .Derrell Darby MD, on 08/05/2016 11:09 .R/
--- NOTE | 2016-08-05 12:29 | PN ---
Date/Time of Note Date/Time of Note DATE: 08/05/16 TIME: 12:28 Assessment/Plan VTE Prophylaxis VTE Prophylaxis Intervention: other (eliquis) Lines/Catheters IV Catheter Type (from Nrs): Peripheral IV Urinary Cath still in place: Yes Reason Cath still needed: other (indicate) Assessment/Plan Assessment/Plan 81-year-old male who had presented with shortness of breath after recent aortic valve replacement surgery now managed as follows: 1. Acute on chronic respiratory failure secondary to CHF as well as significant left-sided pleural effusion 2. Left-sided pleural effusion with left-sided lower lobe atelectasis: cause unclear 3. Mild acute on chronic diastolic CHF with chronic pulmonary hypertension and preserved ejection fraction 4. Small pericardial effusion per echo 5. Status post bioprosthetic aortic valve placement secondary to severe aortic stenosis 6. Diabetes mellitus type 2 A!C: 7. Afib with RVR 8. hypertension: Controlled 9. Chronic kidney disease: creatinine wnl 10. Chronic gout: without exacerbation 11. Left hip pain: Patient's pelvic x-ray did not show any acute signs of fracture: resolved? 12. 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 Outpt mgt 14. Sacral ulcer 15. Gram Negative noris UTI 16. COPD: Stable PLAN: * f/u testing on pleural fluid * add low dose premeal insulin * keep mag >2 * Continue abx * Start levothyroxine when cleared by cardio * Spoke with daughter about possible hospice at d/c,per daughter, patient is usually ambulant and active until this admission. Family optimistic about getting her back to baseline. Request home with HH versus return to SNF * Start inhouse PT * Further interventions per course * DVT and GI prophylaxis: On Eliquis, Protonix. Subjective 24 Hr Interval Summary Free Text/Dictation no new issues, spoke with patient and daughter at bedside s/p thoracentesis today Exam/Review of Systems Vital Signs Vitals Vital Signs Date Time Temp Pulse Resp B/P Pulse Ox O2 Delivery O2 Flow Rate FiO2 08/05/16 11:13 98.0 52 19 138/63 98 08/05/16 07:55 Nasal Cannula 2.0 08/03/16 18:04 Intake and Output 08/04/16 08/04/1617 14:59 22:59 06:59 Intake Total 950 ml Balance 950 ml Exam GENERAL: alert, sleeping, per daughter, orientation is better today HEENT: MAIKEL, LUNGS: diffusely diminished L>>R and coarse BS HEART: S1, S2. +click. ABDOMEN: Soft, non distended, Normoactive bowel sounds. GENITOURINARY: Normal female external genitalia, Givens to bedside drainage EXTREMITIES: Mild 1+ nonpitting edema bilaterally, also some hand edema bilaterally NEUROLOGIC: alert, lethargic Results Result Diagram: 08/05/16 0700 08/05/16 0700 Results 24 hrs Laboratory Tests Test 08/04/16 12:32 08/04/16 17:52 08/04/16 21:33 08/05/16 01:11 Bedside Glucose 161 181 192 179 Test 08/05/16 07:00 08/05/16 08:16 White Blood Count 8.6 Red Blood Count 4.12 L Hemoglobin 11.9 L Hematocrit 38.2 Mean Corpuscular Volume 92.7 Mean Corpuscular Hemoglobin 28.9 L Mean Corpuscular Hemoglobin Concent 31.2 L Red Cell Distribution Width 15.0 H Platelet Count 278 Mean Platelet Volume 11.2 H Neutrophils % 63.1 Lymphocytes % 18.3 Monocytes % 10.2 Eosinophils % 6.5 Basophils % 1.1 Nucleated Red Blood Cells % 0.0 Neutrophils # 5.4 Lymphocytes # 1.6 Monocytes # 0.9 Eosinophils # 0.6 H Basophils # 0.1 Nucleated Red Blood Cells # 0.0 Prothrombin Time 19.2 H Prothrombin Time Ratio 1.5 INR International Normalized Ratio 1.60 Sodium Level 138 Potassium Level 4.0 Chloride Level 96 L Carbon Dioxide Level 32 H Anion Gap 14 Blood Urea Nitrogen 17 Creatinine 0.68 Glucose Level 155 Calcium Level 9.3 Magnesium Level 1.9 Bedside Glucose 163 Medications Medications Current Medications Ondansetron HCl (Zofran Inj) 4 mg Q6H PRN IV NAUSEA AND/OR VOMITING; Start at 05:30 Acetaminophen (Tylenol Tab) 650 mg Q6H PRN PO PAIN LEVEL 1-3 OR FEVER Last administered on 08/03/16t 19:16; Admin Dose 650 MG; Start 08/03/16 at 05:30 Allopurinol (Zyloprim) 300 mg DAILY PRN PO GOUT; Start 08/03/16 at 05:30 Aspirin (Halfprin) 81 mg DAILY PO Last administered on 08/05/16 10:33; Admin Dose 81 MG; Start 08/03/16 at 09:00 Atorvastatin Calcium (Lipitor) 40 mg QHS PO Last administered on 08/04/16 21: 21; Admin Dose 40 MG; Start 08/03/16 at 21:00 Diltiazem HCl (Cardizem Cd) 240 mg DAILY PO Last administered on 08/05/16 10: 33; Admin Dose 240 MG; Start 08/03/16 at 09:00 Docusate Sodium (Colace) 100 mg BID PO Last administered on 08/05/16 10:33; Admin Dose 100 MG; Start 08/03/16 at 09:00 Duloxetine HCl (Cymbalta) 60 mg DAILY PO Last administered on 08/05/16 10:33; Admin Dose 60 MG; Start 08/03/16 at 09:00 Guaifenesin/ Dextromethorphan (Robitussin Dm Liquid Cup) 15 ml Q6H PRN PO COUGH ; Start 08/03/16 at 05:30 Insulin Glargine (Lantus) 25 unit QHS SC Last administered on 08/04/16 21:49; Admin Dose 25 UNIT; Start 08/03/16 at 21:00 Zinc Sulfate (Zinc Sulfate) 220 mg DAILY PO Last administered on 08/05/16 10: 32; Admin Dose 220 MG; Start 08/03/16 at 09:00 Ascorbic Acid (Vitamin C) 500 mg BID PO Last administered on 08/05/16 10:32; Admin Dose 500 MG; Start 08/03/16 at 09:00 Miscellaneous Information 1 ea NOTE XX ; Start 08/03/16 at 06:00 Glucose (Glutose) 15 gm Q15M PRN PO DECREASED GLUCOSE; Start 08/03/16 at 06:00 Glucose (Glutose) 22.5 gm Q15M PRN PO DECREASED GLUCOSE; Start 08/03/16 at 06: 00 Dextrose (D50w Syringe) 25 ml Q15M PRN IV DECREASED GLUCOSE; Start 08/03/16 at 06:00 Dextrose (D50w Syringe) 50 ml Q15M PRN IV DECREASED GLUCOSE; Start 08/03/16 at 06:00 Glucagon (Glucagen) 1 mg Q15M PRN IM DECREASED GLUCOSE; Start 08/03/16 at 06:00 Glucose (Glutose) 15 gm Q15M PRN BUCCAL DECREASED GLUCOSE; Start 08/03/16 at 06 :00 Phenazopyridine HCl (Pyridium) 100 mg BID PO Last administered on 08/05/16 10: 32; Admin Dose 100 MG; Start 08/03/16 at 09:00 Metoprolol Tartrate 5 mg 5 mg Q4H PRN IV HR>110 Hold SBP<100; Start 08/03/16 at 14:30 Ceftriaxone Sodium (Rocephin) 50 ml @ 100 mls/hr Q24H IVPB Last administered on 08/04/16 16:24; Admin Dose 100 MLS/HR; Start 08/03/16 at 15:30 Pregabalin (Lyrica) 100 mg QHS PO Last administered on 08/04/16 22:54; Admin Dose 100 MG; Start 08/03/16 at 21:00 Acetaminophen/ Hydrocodone Bitart ([place] (5/325)) 1 tab Q4H PRN PO PAIN Last administered on 08/04/16 22:32; Admin Dose 1 TAB; Start 08/03/16 at 22:00 Collagenase (Santyl) 1 applic DAILY TOP Last administered on 08/05/16 09:00; Admin Dose 1 APPLIC; Start 08/03/16 at 21:56 Collagenase (Santyl) 1 applic PRN PRN TOP WOUND CARE; Start 08/03/16 at 22:00 Apixaban (Eliquis) 5 mg BID PO Last administered on 08/05/16 10:33; Admin Dose 5 MG; Start 08/04/16 at 21:00 Pantoprazole (Protonix Tab) 40 mg DAILY@06 PO Last administered on 08/05/16 06 :50; Admin Dose 40 MG; Start 08/05/16 at 06:00 Hydromorphone HCl (Dilaudid) 0.5 mg Q4H PRN IV PAIN Last administered on 12:56; Admin Dose 0.5 MG; Start 08/04/16 at 12:45 Diagnostic Test (Pha) (Accu-Chek) 1 ea 02 XX ; Start 08/05/16 at 02:00 Amiodarone HCl (Cordarone) 200 mg BID PO Last administered on 08/05/16 10:33; Admin Dose 200 MG; Start 08/04/16 at 21:00 Atenolol (Tenormin) 25 mg BID PO Last administered on 08/05/16 10:35; Admin Dose 25 MG; Start 08/04/16 at 21:00 Hydralazine HCl (Apresoline) 25 mg Q6H PRN PO ELEVATED BLOOD PRESSURE Last administered on 08/05/16 08:19; Admin Dose 25 MG; Start 08/04/16 at 22:30 CAESAR BROWN Aug 05, 2016 12:29
[2016-08-05 13:28] LABS: FLUID APPEARANCE CLEAR; FLUID TYPE THORACENTHESIS
[2016-08-05 13:29] LABS: FLUID RBC EST 1+; FLUID WBC'S 364 /cmm
[2016-08-05 13:56] LABS: FLUID GLUCOSE 160 mg/dl; FLUID TYPE THORACENTESIS FLUID
[2016-08-05 13:57] LABS: FLUID TYPE THORACENTESIS FLUID
[2016-08-05] MEDS ORDERED: MAGNESIUM SULFATE 1 GM/D5W 100 ML IVPB ONE (14:00)
[2016-08-05 14:05] LABS: FLUID EOSINOPHIL 1 %; FLUID LYMPHOCYTES 62 %; FLUID MONOCYTES 8 %; FLUID NEUTROPHILS 29 %
--- NOTE | 2016-08-05 14:18 | CONS ---
Date/Time of Note Date/Time of Note DATE: 08/05/16 TIME: 14:15 Assessment/Plan Assessment/Plan Chief Complaint/Hosp Course IMp: 1.CHF-by CT ? diastolic acute on chronic 2.AF with RVR-ongoing 3.H/O AVR-bioprosthetic 4.COPD 5.SOB 6. Coagulopathy 7. Anemia 8.Pericardial effusion- echo this admit with small effusion only 9. Chest pain-this am described as palpitation more than pain Recc: -Tele -serial ecg's -El;iquis held for thoracentesis -Continue coreg/dilt with possible ability to increase dose -Gentle lasix diuresis as tolerated -Continue statin -hold losartan and follow labile BP closely -Check troponin/ECG Problems: Consultation Date/Type/Reason Admit Date/Time Aug 03, 2016 at 15:32 Initial Consult Date 08/04/16 Type of Consultation: cardiology Reason for Consultation chest pain Referring Provider: SNEHAL AMANDA Exam/Review of Systems Vital Signs Vitals Vital Signs Date Time Temp Pulse Resp B/P Pulse Ox O2 Delivery O2 Flow Rate FiO2 08/05/16 12:40 54 08/05/16 11:13 98.0 19 138/63 98 08/05/16 07:55 Nasal Cannula 2.0 08/03/16 18:04 Intake and Output 08/04/16 08/04/16 08/05/16 15:00 23:00 07:00 Intake Total 950 ml Balance 950 ml Exam Review of Systems: CONSTITUTIONAL: No fevers, chills. PULMONARY: ongoing sob CARDIOVASCULAR: No chest pain/palpitations GASTROINTESTINAL: No nausea/vomiting. GENITOURINARY: No hematuria/dysuria. MUSCULOSKELETAL: No myagias/arthalgias. PSYCHIATRIC: The patient denies depression. NEUROLOGIC: No weakness Constitutional: alert Psych: no complaints Head: normocephalic ENMT: mucosa pink and moist Neck: jvd, supple Respiratory: diminished breath sounds Cardiovascular: irregular rhythm Gastrointestinal: non-tender, soft Musculoskeletal: muscle weakness (generalized) Extremities: edema (trace/B) Neurological: lethargic Results Result Diagram: 08/05/16 0700 08/05/16 0700 Results 24 hrs Laboratory Tests Test 08/04/16 17:52 08/04/16 21:33 08/05/16 01:11 08/05/16 07:00 Bedside Glucose 181 192 179 White Blood Count 8.6 Red Blood Count 4.12 L Hemoglobin 11.9 L Hematocrit 38.2 Mean Corpuscular Volume 92.7 Mean Corpuscular Hemoglobin 28.9 L Mean Corpuscular Hemoglobin Concent 31.2 L Red Cell Distribution Width 15.0 H Platelet Count 278 Mean Platelet Volume 11.2 H Neutrophils % 63.1 Lymphocytes % 18.3 Monocytes % 10.2 Eosinophils % 6.5 Basophils % 1.1 Nucleated Red Blood Cells % 0.0 Neutrophils # 5.4 Lymphocytes # 1.6 Monocytes # 0.9 Eosinophils # 0.6 H Basophils # 0.1 Nucleated Red Blood Cells # 0.0 Prothrombin Time 19.2 H Prothrombin Time Ratio 1.5 INR International Normalized Ratio 1.60 Sodium Level 138 Potassium Level 4.0 Chloride Level 96 L Carbon Dioxide Level 32 H Anion Gap 14 Blood Urea Nitrogen 17 Creatinine 0.68 Glucose Level 155 Calcium Level 9.3 Magnesium Level 1.9 Test 08/05/16 08:16 08/05/16 09:30 08/05/16 12:17 Bedside Glucose 163 208 Body Fluid Type THORACENTESIS FLUID Body Fluid Volume 1000.0 Body Fluid Color YELLOW Body Fluid Appearance CLEAR Body Fluid WBC 364 Body Fluid RBC 1+ Body Fluid Neutrophils % 29 Body Fluid Lymphocytes (%) 62 Body Fluid Monocytes % 8 Body Fluid Eosinophils % 1 Body Fluid Glucose 160 Body Fluid Lactate Dehydrogenase Medications Medications Current Medications Ondansetron HCl (Zofran Inj) 4 mg Q6H PRN IV NAUSEA AND/OR VOMITING; Start at 05:30 Acetaminophen (Tylenol Tab) 650 mg Q6H PRN PO PAIN LEVEL 1-3 OR FEVER Last administered on 08/03/16 19:16; Admin Dose 650 MG; Start 08/03/16 at 05:30 Allopurinol (Zyloprim) 300 mg DAILY PRN PO GOUT; Start 08/03/16 at 05:30 Aspirin (Halfprin) 81 mg DAILY PO Last administered on 08/05/16 10:33; Admin Dose 81 MG; Start 08/03/16 at 09:00 Atorvastatin Calcium (Lipitor) 40 mg QHS PO Last administered on 08/04/16 21: 21; Admin Dose 40 MG; Start 08/03/16 at 21:00 Diltiazem HCl (Cardizem Cd) 240 mg DAILY PO Last administered on 08/05/16 10: 33; Admin Dose 240 MG; Start 08/03/16 at 09:00 Docusate Sodium (Colace) 100 mg BID PO Last administered on 08/05/16 10:33; Admin Dose 100 MG; Start 08/03/16 at 09:00 Duloxetine HCl (Cymbalta) 60 mg DAILY PO Last administered on 08/05/16 10:33; Admin Dose 60 MG; Start 08/03/16 at 09:00 Guaifenesin/ Dextromethorphan (Robitussin Dm Liquid Cup) 15 ml Q6H PRN PO COUGH ; Start 08/03/16 at 05:30 Insulin Glargine (Lantus) 25 unit QHS SC Last administered on 08/04/16 21:49; Admin Dose 25 UNIT; Start 08/03/16 at 21:00 Zinc Sulfate (Zinc Sulfate) 220 mg DAILY PO Last administered on 08/05/16 10: 32; Admin Dose 220 MG; Start 08/03/16 at 09:00 Ascorbic Acid (Vitamin C) 500 mg BID PO Last administered on 08/05/16 10:32; Admin Dose 500 MG; Start 08/03/16 at 09:00 Miscellaneous Information 1 ea NOTE XX ; Start 08/03/16 at 06:00 Glucose (Glutose) 15 gm Q15M PRN PO DECREASED GLUCOSE; Start 08/03/16 at 06:00 Glucose (Glutose) 22.5 gm Q15M PRN PO DECREASED GLUCOSE; Start 08/03/16 at 06: 00 Dextrose (D50w Syringe) 25 ml Q15M PRN IV DECREASED GLUCOSE; Start 08/03/16 at 06:00 Dextrose (D50w Syringe) 50 ml Q15M PRN IV DECREASED GLUCOSE; Start 08/03/16 at 06:00 Glucagon (Glucagen) 1 mg Q15M PRN IM DECREASED GLUCOSE; Start 08/03/16 at 06:00 Glucose (Glutose) 15 gm Q15M PRN BUCCAL DECREASED GLUCOSE; Start 08/03/16 at 06 :00 Phenazopyridine HCl (Pyridium) 100 mg BID PO Last administered on 08/05/16 10: 32; Admin Dose 100 MG; Start 08/03/16 at 09:00 Metoprolol Tartrate 5 mg 5 mg Q4H PRN IV HR>110 Hold SBP<100; Start 08/03/16 at 14:30 Ceftriaxone Sodium (Rocephin) 50 ml @ 100 mls/hr Q24H IVPB Last administered on 08/04/16 16:24; Admin Dose 100 MLS/HR; Start 08/03/16 at 15:30 Pregabalin (Lyrica) 100 mg QHS PO Last administered on 08/04/16 22:54; Admin Dose 100 MG; Start 08/03/16 at 21:00 Acetaminophen/ Hydrocodone Bitart ([place] (5/325)) 1 tab Q4H PRN PO PAIN Last administered on 08/04/16 22:32; Admin Dose 1 TAB; Start 08/03/16 at 22:00 Collagenase (Santyl) 1 applic DAILY TOP Last administered on 08/05/16 09:00; Admin Dose 1 APPLIC; Start 08/03/16 at 21:56 Collagenase (Santyl) 1 applic PRN PRN TOP WOUND CARE; Start 08/03/16 at 22:00 Apixaban (Eliquis) 5 mg BID PO Last administered on 08/05/16 10:33; Admin Dose 5 MG; Start 08/04/16 at 21:00; Status Future Hold Pantoprazole (Protonix Tab) 40 mg DAILY@06 PO Last administered on 08/05/16 06 :50; Admin Dose 40 MG; Start 08/05/16 at 06:00 Hydromorphone HCl (Dilaudid) 0.5 mg Q4H PRN IV PAIN Last administered on 12:56; Admin Dose 0.5 MG; Start 08/04/16 at 12:45 Diagnostic Test (Pha) (Accu-Chek) 1 ea 02 XX ; Start 08/05/16 at 02:00 Amiodarone HCl (Cordarone) 200 mg BID PO Last administered on 08/05/16 10:33; Admin Dose 200 MG; Start 08/04/16 at 21:00 Atenolol (Tenormin) 25 mg BID PO Last administered on 08/05/16 10:35; Admin Dose 25 MG; Start 08/04/16 at 21:00 Hydralazine HCl 25 mg 25 mg Q6H PRN PO ELEVATED BLOOD PRESSURE Last administered on 6/29/17at 08:19; Admin Dose 25 MG; Start 08/04/16 at 22:30 Magnesium Sulfate/ Dextrose (Magnesium Sulfate 1 Gm/D5W) 100 ml @ 100 mls/hr ONCE ONCE IVPB ; Start 08/05/16 at 14:00; Stop 08/05/16 at 14:59 SCARLET WALTERS Aug 05, 2016 14:18
[2016-08-05] MEDS: CEFTRIAXONE 1 GM/50 ML (PMX) 50 ML IVPB SCH (17:00)
[2016-08-05] MEDS: INSULIN ASPART [NOVOLOG] 3 ML PEN SC SCH (17:29)
[2016-08-05] MEDS: ATORVASTATIN 40 MG TAB PO SCH (21:08)
[2016-08-05] MEDS: INSULIN GLARGINE [LANtus] 3 ML PEN SC SCH (21:21)
[2016-08-05] MEDS: PREGABALIN 25 MG CAP PO SCH (21:22)
[2016-08-06] VITALS (12 sets, daily range): BP systolic 115–155; BP diastolic 57–79; PULSE 61–72; RESP 18–20
[2016-08-06] MEDS: ACCUCHECK AT 2AM (Patients on SS coverage) XX SCH (02:00)
[2016-08-06] MEDS: FUROSEMIDE 20 MG INJ IV SCH ×2 (06:38→17:25)
[2016-08-06] MEDS: PANTOPRAZOLE (EC) 40 MG TAB PO SCH (06:38)
[2016-08-06 06:39] LABS: BASOPHIL # 0.1 10^3/ul (0.0-0.1); BASOPHILS % 0.7 % (0.0-2.0); EOSINOPHILS # 0.6 10^3/ul (0.0-0.5); EOSINOPHILS % 7.1 % (0.0-7.0); HEMATOCRIT 34.5 % (37.0-47.0); HEMOGLOBIN 10.8 g/dl (12.0-16.0); LYMPHOCYTES # 1.6 10^3/ul (0.8-2.9); LYMPHOCYTES % 19.7 % (15.0-51.0); MEAN CORPUSCULAR HEMOGLOBIN 28.8 pg (29.0-33.0); MEAN CORPUSCULAR HGB CONC 31.3 g/dl (32.0-37.0); MEAN PLATELET VOLUME 10.8 fl (7.4-10.4); MONOCYTE # 0.7 10^3/ul (0.3-0.9); MONOCYTES % 8.1 % (0.0-11.0); NEUTROPHIL # 5.3 10^3/ul (1.6-7.5); NEUTROPHILS % 63.2 % (39.0-77.0); PLATELET COUNT 272 10^3/UL (140-415); RED BLOOD COUNT 3.75 10^6/ul (4.20-5.40); RED CELL DISTRIBUTION WIDTH 14.6 % (11.5-14.5); WHITE BLOOD COUNT 8.3 10^3/ul (4.8-10.8)
[2016-08-06 06:45] LABS: CALCIUM 8.9 mg/dl (8.4-10.2); CREATININE 0.77 mg/dl (0.44-1.00); POTASSIUM 4.1 mmol/L (3.5-5.1)
[2016-08-06] MEDS: Insulin NOVOLOG SS MILD Algorithm (SS with meals and bedtime) SC SCH ×4 (07:25→21:48)
[2016-08-06 07:28] LABS: ADD SCAN DIFF NO
[2016-08-06] MEDS: INSULIN ASPART [NOVOLOG] 3 ML PEN SC SCH ×3 (08:27→17:24)
[2016-08-06] MEDS: ASCORBIC ACID 500 MG TAB PO SCH ×2 (09:08→21:39)
[2016-08-06] MEDS: ATENOLOL 25 MG TAB PO SCH ×2 (09:08→21:38)
[2016-08-06] MEDS: DILTIAZEM (CD) 240 MG CAP PO SCH (09:08)
[2016-08-06] MEDS: AMIODARONE 200 MG TAB PO SCH ×2 (09:08→21:38)
[2016-08-06] MEDS: ZINC SULFATE 220 MG CAP PO SCH (09:09)
[2016-08-06] MEDS: DOCUSATE SODIUM 100 MG CAP PO SCH ×2 (09:09→21:38)
[2016-08-06] MEDS: ASPIRIN (EC) 81 MG TAB PO SCH (09:09)
[2016-08-06] MEDS: DULOXETINE 30 MG CAP DR PO SCH (09:13)
[2016-08-06] MEDS: HYDROCODONE/APAP (5/325) TAB PO PRN ×3 (09:18→23:45)
--- NOTE | 2016-08-06 10:23 | RADRPT ---
PROCEDURE: XR Chest 1 view. CLINICAL INDICATION: Shortness of breath TECHNIQUE: AP views of the chest was obtained. COMPARISON: Yesterday FINDINGS: The heart is large. Calcified atherosclerosis is noted in the aorta. Central pulmonary vascular con gestion and interstitial prominence in both lungs is unchanged. Retrocardiac opacity stable. Calci fied granuloma in the left lower lobe is stable. The osseous structures are unchanged. IMPRESSION: Cardiomegaly with calcified atherosclerosis in the aorta. Central pulmonary vascular congestion and interstitial prominence in both lungs. Stable retrocardiac opacity that may reflect left lower lobe atelectasis or infiltrate combined with small pleural effusion. Stable calcified granuloma in the left lower lobe. RPTAT: AA .Leonel Chang MD, Date Time Electronically viewed and signed by .Leonel Chang MD, MD on 08/06/2016 10:23 .P/
--- NOTE | 2016-08-06 11:43 | PN ---
Date/Time of Note Date/Time of Note DATE: 08/06/16 TIME: 11:40 Assessment/Plan VTE Prophylaxis VTE Prophylaxis Intervention: other (Eliquis) Lines/Catheters IV Catheter Type (from Nrs): Peripheral IV Urinary Cath still in place: Yes Reason Cath still needed: other (indicate) (theres no cath) Assessment/Plan Assessment/Plan 81-year-old male who had presented with shortness of breath after recent aortic valve replacement surgery now managed as follows: 1. Acute on chronic respiratory failure secondary to CHF as well as significant left-sided pleural effusion: resolved 2. Left-sided pleural effusion with left-sided lower lobe atelectasis: cause unclear: cultures negative 3. Mild acute on chronic diastolic CHF with chronic pulmonary hypertension and preserved ejection fraction 4. Small pericardial effusion per echo 5. Status post bioprosthetic aortic valve placement secondary to severe aortic stenosis 6. Diabetes mellitus type 2: Excellent in-house glycemic control 7. Afib with RVR: rate controlled 8. hypertension: Controlled 9. Chronic kidney disease: creatinine wnl 10. Chronic gout: without exacerbation 11. Left hip pain: Patient's pelvic x-ray did not show any acute signs of fracture: resolved? 12. 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 Outpt mgt 14. Sacral ulcer 15. Ecoli UTI : on treatment 16. COPD: Stable PLAN: * Patient a vast improvement from yesterday * Continue abx and diuresis / begin discharge planning with family * Further interventions per course * DVT and GI prophylaxis: On Eliquis, Protonix. Subjective 24 Hr Interval Summary Free Text/Dictation Patient looks much better, wants to go home. Exam/Review of Systems Vital Signs Vitals Vital Signs Date Time Temp Pulse Resp B/P Pulse Ox O2 Delivery O2 Flow Rate FiO2 08/06/16 11:23 98.2 67 19 128/59 95 08/05/16 07:55 Nasal Cannula 2.0 08/03/16 18:04 Intake and Output 08/05/16 08/05/16 08/06/16 15:00 23:00 07:00 Intake Total 150 ml 200 ml Balance 150 ml 200 ml Exam Constitutional: alert, obese, oriented, No distress Psych: nl mood/affect Head: normocephalic Eyes: PERRL ENMT: mucosa pink and moist Neck: supple Respiratory: clear to auscultation, diminished breath sounds Cardiovascular: No murmurs/extra sounds, No regular rate and rhythm Neurological: nl mental status, No focal weakness Results Result Diagram: 08/06/16 0500 08/06/16 0520 Results 24 hrs Laboratory Tests Test 08/05/16 12:17 08/05/16 17:26 08/05/16 19:29 08/05/16 21:11 Bedside Glucose 208 176 173 Troponin I < 0.012 Test 08/06/16 00:37 08/06/16 05:00 08/06/16 05:20 08/06/16 08:22 Troponin I 0.018 White Blood Count 8.3 Red Blood Count 3.75 L Hemoglobin 10.8 L Hematocrit 34.5 L Mean Corpuscular Volume 92.0 Mean Corpuscular Hemoglobin 28.8 L Mean Corpuscular Hemoglobin Concent 31.3 L Red Cell Distribution Width 14.6 H Platelet Count 272 Mean Platelet Volume 10.8 H Neutrophils % 63.2 Lymphocytes % 19.7 Monocytes % 8.1 Eosinophils % 7.1 H Basophils % 0.7 Nucleated Red Blood Cells % 0.0 Neutrophils # 5.3 Lymphocytes # 1.6 Monocytes # 0.7 Eosinophils # 0.6 H Basophils # 0.1 Nucleated Red Blood Cells # 0.0 Sodium Level 135 Potassium Level 4.1 Chloride Level 92 L Carbon Dioxide Level 33 H Anion Gap 14 Blood Urea Nitrogen 19 Creatinine 0.77 Glucose Level 137 Calcium Level 8.9 Bedside Glucose 157 Medications Medications Current Medications Ondansetron HCl (Zofran Inj) 4 mg Q6H PRN IV NAUSEA AND/OR VOMITING; Start at 05:30 Acetaminophen (Tylenol Tab) 650 mg Q6H PRN PO PAIN LEVEL 1-3 OR FEVER Last administered on 08/03/16 19:16; Admin Dose 650 MG; Start 08/03/16 at 05:30 Allopurinol (Zyloprim) 300 mg DAILY PRN PO GOUT; Start 08/03/16 at 05:30 Aspirin (Halfprin) 81 mg DAILY PO Last administered on 08/06/16 09:09; Admin Dose 81 MG; Start 08/03/16 at 09:00 Atorvastatin Calcium (Lipitor) 40 mg QHS PO Last administered on 08/05/16 21: 08; Admin Dose 40 MG; Start 08/03/16 at 21:00 Diltiazem HCl (Cardizem Cd) 240 mg DAILY PO Last administered on 08/06/16 09: 08; Admin Dose 240 MG; Start 08/03/16 at 09:00 Docusate Sodium (Colace) 100 mg BID PO Last administered on 08/06/16 09:09; Admin Dose 100 MG; Start 08/03/16 at 09:00 Duloxetine HCl (Cymbalta) 60 mg DAILY PO Last administered on 08/06/16 09:13; Admin Dose 60 MG; Start 08/03/16 at 09:00 Guaifenesin/ Dextromethorphan (Robitussin Dm Liquid Cup) 15 ml Q6H PRN PO COUGH ; Start 08/03/16 at 05:30 Insulin Glargine (Lantus) 25 unit QHS SC Last administered on 08/05/16 21:21; Admin Dose 25 UNIT; Start 08/03/16 at 21:00 Zinc Sulfate (Zinc Sulfate) 220 mg DAILY PO Last administered on 08/06/16 09: 09; Admin Dose 220 MG; Start 08/03/16 at 09:00 Ascorbic Acid (Vitamin C) 500 mg BID PO Last administered on 08/06/16 09:08; Admin Dose 500 MG; Start 08/03/16 at 09:00 Miscellaneous Information 1 ea NOTE XX ; Start 08/03/16 at 06:00 Glucose (Glutose) 15 gm Q15M PRN PO DECREASED GLUCOSE; Start 08/03/16 at 06:00 Glucose (Glutose) 22.5 gm Q15M PRN PO DECREASED GLUCOSE; Start 08/03/16 at 06: 00 Dextrose (D50w Syringe) 25 ml Q15M PRN IV DECREASED GLUCOSE; Start 08/03/16 at 06:00 Dextrose (D50w Syringe) 50 ml Q15M PRN IV DECREASED GLUCOSE; Start 08/03/16 at 06:00 Glucagon (Glucagen) 1 mg Q15M PRN IM DECREASED GLUCOSE; Start 08/03/16 at 06:00 Glucose (Glutose) 15 gm Q15M PRN BUCCAL DECREASED GLUCOSE; Start 08/03/16 at 06 :00 Metoprolol Tartrate 5 mg 5 mg Q4H PRN IV HR>110 Hold SBP<100; Start 08/03/16 at 14:30 Ceftriaxone Sodium (Rocephin) 50 ml @ 100 mls/hr Q24H IVPB Last administered on 08/05/16 17:00; Admin Dose 100 MLS/HR; Start 08/03/16 at 15:30 Pregabalin (Lyrica) 100 mg QHS PO Last administered on 08/05/16 21:22; Admin Dose 100 MG; Start 08/03/16 at 21:00 Acetaminophen/ Hydrocodone Bitart ([place] (5/325)) 1 tab Q4H PRN PO PAIN Last administered on 08/06/16 09:18; Admin Dose 1 TAB; Start 08/03/16 at 22:00 Collagenase (Santyl) 1 applic DAILY TOP Last administered on 08/05/16 09:00; Admin Dose 1 APPLIC; Start 08/03/16 at 21:56 Collagenase (Santyl) 1 applic PRN PRN TOP WOUND CARE; Start 08/03/16 at 22:00 Apixaban (Eliquis) 5 mg BID PO Last administered on 08/05/16 10:33; Admin Dose 5 MG; Start 08/04/16 at 21:00; Status Future Hold Pantoprazole (Protonix Tab) 40 mg DAILY@06 PO Last administered on 08/06/16 06 :38; Admin Dose 40 MG; Start 08/05/16 at 06:00 Hydromorphone HCl (Dilaudid) 0.5 mg Q4H PRN IV PAIN Last administered on 12:56; Admin Dose 0.5 MG; Start 08/04/16 at 12:45 Diagnostic Test (Pha) (Accu-Chek) 1 ea 02 XX ; Start 08/05/16 at 02:00 Amiodarone HCl (Cordarone) 200 mg BID PO Last administered on 08/06/16 09:08; Admin Dose 200 MG; Start 08/04/16 at 21:00 Atenolol (Tenormin) 25 mg BID PO Last administered on 08/06/16 09:08; Admin Dose 25 MG; Start 08/04/16 at 21:00 Hydralazine HCl (Apresoline) 25 mg Q6H PRN PO ELEVATED BLOOD PRESSURE Last administered on 08/05/16t 08:19; Admin Dose 25 MG; Start 08/04/16 at 22:30 Procedures Procedures PROCEDURE: XR Chest 1 view. CLINICAL INDICATION: Shortness of breath TECHNIQUE: AP views of the chest was obtained. COMPARISON: Yesterday FINDINGS: The heart is large. Calcified atherosclerosis is noted in the aorta. Central pulmonary vascular congestion and interstitial prominence in both lungs is unchanged. Retrocardiac opacity stable. Calcified granuloma in the left lower lobe is stable. The osseous structures are unchanged. IMPRESSION: Cardiomegaly with calcified atherosclerosis in the aorta. Central pulmonary vascular congestion and interstitial prominence in both lungs. Stable retrocardiac opacity that may reflect left lower lobe atelectasis or infiltrate combined with small pleural effusion. Stable calcified granuloma in the left lower lobe. RPTAT: AA .Leonel Chang MD, MD Date Time Electronically viewed and signed by .Leonel Chang MD, MD on 08/06/2016 10:23 .P/ CC: CAESAR BROWN BOLATITO M. Aug 06, 2016 11:43
[2016-08-06] MEDS: COLLAGENASE 30 GM TUBE TOP SCH (14:30)
[2016-08-06] MEDS: CEFTRIAXONE 1 GM/50 ML (PMX) 50 ML IVPB SCH (14:39)
--- NOTE | 2016-08-06 14:40 | CONS ---
Date/Time of Note Date/Time of Note DATE: 08/06/16 TIME: 14:36 Assessment/Plan Assessment/Plan Chief Complaint/Hosp Course IMp: 1.CHF-by CT ? diastolic acute on chronic 2.AF with RVR-now improved HR 3.H/O AVR-bioprosthetic 4.COPD 5.SOB 6. Coagulopathy 7. Anemia 8.Pericardial effusion- echo this admit with small effusion only 9. Chest pain-described as palpitation more than pain and now resolved/neg trop x 3 Recc: -Tele -serial ecg's -Resume Eliquis -Continue atenolol/dilt with well controlled heart rate -Continue lasix diuresis -Continue statin -Likely resume losartan at D/C -outpatient f/u with cards 2 weeks Problems: Consultation Date/Type/Reason Admit Date/Time Aug 03, 2016 at 15:32 Initial Consult Date 08/04/16 Type of Consultation: cardiology Reason for Consultation pericardial effusion/AF Referring Provider: SNEHAL AMANDA Exam/Review of Systems Vital Signs Vitals Vital Signs Date Time Temp Pulse Resp B/P Pulse Ox O2 Delivery O2 Flow Rate FiO2 08/06/16 12:55 65 08/06/16 11:23 98.2 19 128/59 95 08/05/16 07:55 Nasal Cannula 2.0 08/03/16 18:04 Intake and Output 08/05/16 08/05/16 08/06/16 15:00 23:00 07:00 Intake Total 150 ml 200 ml Balance 150 ml 200 ml Exam Review of Systems: CONSTITUTIONAL: No fevers, chills. PULMONARY: No sob CARDIOVASCULAR: No chest pain/palpitations GASTROINTESTINAL: No nausea/vomiting. GENITOURINARY: No hematuria/dysuria. MUSCULOSKELETAL: No myagias/arthalgias. PSYCHIATRIC: The patient denies depression. NEUROLOGIC: lethargic Constitutional: alert Psych: no complaints Head: normocephalic Neck: jvd, supple Respiratory: diminished breath sounds (at bases/B) Cardiovascular: irregular rhythm Gastrointestinal: non-tender, soft Musculoskeletal: muscle tone (normal) Extremities: edema (none) Neurological: other (No focal deficits) Results Result Diagram: 08/06/16 0500 08/06/16 0520 Results 24 hrs Laboratory Tests Test 08/05/16 17:26 08/05/16 19:29 08/05/16 21:11 08/06/16 00:37 Bedside Glucose 176 173 Troponin I < 0.012 0.018 Test 08/06/16 05:00 08/06/16 05:20 08/06/16 08:22 08/06/16 12:13 White Blood Count 8.3 Red Blood Count 3.75 L Hemoglobin 10.8 L Hematocrit 34.5 L Mean Corpuscular Volume 92.0 Mean Corpuscular Hemoglobin 28.8 L Mean Corpuscular Hemoglobin Concent 31.3 L Red Cell Distribution Width 14.6 H Platelet Count 272 Mean Platelet Volume 10.8 H Neutrophils % 63.2 Lymphocytes % 19.7 Monocytes % 8.1 Eosinophils % 7.1 H Basophils % 0.7 Nucleated Red Blood Cells % 0.0 Neutrophils # 5.3 Lymphocytes # 1.6 Monocytes # 0.7 Eosinophils # 0.6 H Basophils # 0.1 Nucleated Red Blood Cells # 0.0 Sodium Level 135 Potassium Level 4.1 Chloride Level 92 L Carbon Dioxide Level 33 H Anion Gap 14 Blood Urea Nitrogen 19 Creatinine 0.77 Glucose Level 137 Calcium Level 8.9 Bedside Glucose 157 154 Medications Medications Current Medications Ondansetron HCl (Zofran Inj) 4 mg Q6H PRN IV NAUSEA AND/OR VOMITING; Start at 05:30 Acetaminophen (Tylenol Tab) 650 mg Q6H PRN PO PAIN LEVEL 1-3 OR FEVER Last administered on 08/03/16 19:16; Admin Dose 650 MG; Start 08/03/16 at 05:30 Allopurinol (Zyloprim) 300 mg DAILY PRN PO GOUT; Start 08/03/16 at 05:30 Aspirin (Halfprin) 81 mg DAILY PO Last administered on 08/06/16 09:09; Admin Dose 81 MG; Start 08/03/16 at 09:00 Atorvastatin Calcium (Lipitor) 40 mg QHS PO Last administered on 08/05/16 21: 08; Admin Dose 40 MG; Start 08/03/16 at 21:00 Diltiazem HCl (Cardizem Cd) 240 mg DAILY PO Last administered on 08/06/16 09: 08; Admin Dose 240 MG; Start 08/03/16 at 09:00 Docusate Sodium (Colace) 100 mg BID PO Last administered on 08/06/16 09:09; Admin Dose 100 MG; Start 08/03/16 at 09:00 Duloxetine HCl (Cymbalta) 60 mg DAILY PO Last administered on 08/06/16 09:13; Admin Dose 60 MG; Start 08/03/16 at 09:00 Guaifenesin/ Dextromethorphan (Robitussin Dm Liquid Cup) 15 ml Q6H PRN PO COUGH ; Start 08/03/16 at 05:30 Insulin Glargine (Lantus) 25 unit QHS SC Last administered on 08/05/16 21:21; Admin Dose 25 UNIT; Start 08/03/16 at 21:00 Zinc Sulfate (Zinc Sulfate) 220 mg DAILY PO Last administered on 08/06/16 09: 09; Admin Dose 220 MG; Start 08/03/16 at 09:00 Ascorbic Acid (Vitamin C) 500 mg BID PO Last administered on 08/06/16 09:08; Admin Dose 500 MG; Start 08/03/16 at 09:00 Miscellaneous Information 1 ea NOTE XX ; Start 08/03/16 at 06:00 Glucose (Glutose) 15 gm Q15M PRN PO DECREASED GLUCOSE; Start 08/03/16 at 06:00 Glucose (Glutose) 22.5 gm Q15M PRN PO DECREASED GLUCOSE; Start 08/03/16 at 06: 00 Dextrose (D50w Syringe) 25 ml Q15M PRN IV DECREASED GLUCOSE; Start 08/03/16 at 06:00 Dextrose (D50w Syringe) 50 ml Q15M PRN IV DECREASED GLUCOSE; Start 08/03/16 at 06:00 Glucagon (Glucagen) 1 mg Q15M PRN IM DECREASED GLUCOSE; Start 08/03/16 at 06:00 Glucose (Glutose) 15 gm Q15M PRN BUCCAL DECREASED GLUCOSE; Start 08/03/16 at 06 :00 Metoprolol Tartrate 5 mg 5 mg Q4H PRN IV HR>110 Hold SBP<100; Start 08/03/16 at 14:30 Ceftriaxone Sodium (Rocephin) 50 ml @ 100 mls/hr Q24H IVPB Last administered on 08/05/16 17:00; Admin Dose 100 MLS/HR; Start 08/03/16 at 15:30 Pregabalin (Lyrica) 100 mg QHS PO Last administered on 08/05/16 21:22; Admin Dose 100 MG; Start 08/03/16 at 21:00 Acetaminophen/ Hydrocodone Bitart ([place] (5/325)) 1 tab Q4H PRN PO PAIN Last administered on 08/06/16 09:18; Admin Dose 1 TAB; Start 08/03/16 at 22:00 Collagenase (Santyl) 1 applic DAILY TOP Last administered on 08/05/16 09:00; Admin Dose 1 APPLIC; Start 08/03/16 at 21:56 Collagenase (Santyl) 1 applic PRN PRN TOP WOUND CARE; Start 08/03/16 at 22:00 Apixaban (Eliquis) 5 mg BID PO Last administered on 08/05/16 10:33; Admin Dose 5 MG; Start 08/04/16 at 21:00; Status Future hold Pantoprazole (Protonix Tab) 40 mg DAILY@06 PO Last administered on 08/06/16 06 :38; Admin Dose 40 MG; Start 08/05/16 at 06:00 Hydromorphone HCl (Dilaudid) 0.5 mg Q4H PRN IV PAIN Last administered on 12:56; Admin Dose 0.5 MG; Start 08/04/16 at 12:45 Diagnostic Test (Pha) (Accu-Chek) 1 ea 02 XX ; Start 08/05/16 at 02:00 Amiodarone HCl (Cordarone) 200 mg BID PO Last administered on 08/06/16 09:08; Admin Dose 200 MG; Start 08/04/16 at 21:00 Atenolol (Tenormin) 25 mg BID PO Last administered on 08/06/16 09:08; Admin Dose 25 MG; Start 08/04/16 at 21:00 Hydralazine HCl (Apresoline) 25 mg Q6H PRN PO ELEVATED BLOOD PRESSURE Last administered on 08/05/16 08:19; Admin Dose 25 MG; Start 08/04/16 at 22:30 SCARLET WALTERS Aug 06, 2016 14:40
[2016-08-06] MEDS ORDERED: ALLO300T2 PO (14:43)
[2016-08-06] MEDS ORDERED: LANT3I SC (14:43)
[2016-08-06] MEDS ORDERED: POTA20TA96 PO (14:43)
[2016-08-06] MEDS ORDERED: APIX5TAB PO (14:43)
[2016-08-06] MEDS ORDERED: ESOM40CA51 PO (14:43)
[2016-08-06] MEDS ORDERED: DOCU-159 PO (14:43)
[2016-08-06] MEDS ORDERED: CIPR500T4 PO (14:43)
[2016-08-06] MEDS ORDERED: LOSA100T7 PO (14:43)
[2016-08-06] MEDS ORDERED: NOVO3I SC (14:43)
[2016-08-06] MEDS ORDERED: AMIN887L PO (14:43)
[2016-08-06] MEDS ORDERED: FURO20TA3 PO (14:43)
[2016-08-06] MEDS ORDERED: ACET-2047 PO (14:43)
[2016-08-06] MEDS ORDERED: ASPI-664 PO (14:43)
[2016-08-06] MEDS ORDERED: ASCO500S2 PO (14:43)
[2016-08-06] MEDS ORDERED: LEVA15HF6 INH (14:43)
[2016-08-06] MEDS ORDERED: ATOR40TA68 PO (14:43)
[2016-08-06] MEDS ORDERED: LYRI100 PO (14:43)
[2016-08-06] MEDS ORDERED: ATEN-51 PO (14:43)
[2016-08-06] MEDS ORDERED: MULT-876 PO (14:43)
[2016-08-06] MEDS ORDERED: DULO60CA6 PO (14:43)
[2016-08-06] MEDS ORDERED: DILT240T PO (14:43)
[2016-08-06] MEDS ORDERED: ZINC220C5 PO (14:43)
--- NOTE | 2016-08-06 14:44 | DS ---
Date/Time of Note Date/Time of Note DATE: 08/06/16 TIME: 14:44 Discharge Summary Admission/Discharge Info Admit Date/Time Aug 03, 2016 at 15:32 Discharge Date/Time Discharge Diagnosis 1. Acute on chronic respiratory failure secondary to CHF as well as significant left-sided pleural effusion: resolved 2. Left-sided pleural effusion with left-sided lower lobe atelectasis: cause unclear, non infectious, s/p thoracentesis 3. Mild acute on chronic diastolic CHF with chronic pulmonary hypertension and preserved ejection fraction : compensated 4. Small pericardial effusion per echo: non interventional 5. Status post bioprosthetic aortic valve placement secondary to severe aortic stenosis 6. Diabetes mellitus type 2 A!C:good control 7. Afib with RVR: Now rate controlled 8. hypertension: Controlled 9. Chronic kidney disease: stable 10. Chronic gout: without exacerbation 11. Left hip pain: Patient's pelvic x-ray did not show any acute signs of fracture: resolved? 12. 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 Sacral ulcer: wound care nurse to help at home 15. Ecoli UTI : on treatment 16. COPD: Stable Consults Cardiology: Carla Pulmonary: Padminini Procedures See hospital course . Hx of Present Illness Chief complaint: Shortness of breath 4 days This is a 81-year-old female with a history of multiple medical problems including recent TAVR approximately 3-4 weeks ago, comes in today with shortness of breath 4 days. Of note patient is a poor historian. Patient currently is living at [facility]. Patient states that she started experiencing shortness of breath over the last 3-4 days and it has progressively gotten worse. Patient also states that she fell the other day did not lose any consciousness or hit her head. She did develop fall on her left hip. Patient denies any chest pain or any coughing at this time. Denies any fevers. Denies any sputum production. She does state that she noticed some swelling in her lower extremities. Allergies: NSAIDs, codeine Medications: See [facility] Hospital Course 81-year-old female who has had recent aortic valve replacement because of severe aortic stenosis and was sent to a [facility] facility after the procedure because she was ventilator dependent for a while with respiratory failure and at the end of her hospitalization was quite debilitated. She had been undergoing rehab at the facility, but then family had noted that she was becoming more and more short of breath and she was brought to us as the nearest ER for evaluation. In the emergency room, she was found to have on CAT scan pleural effusion as well as pericardial effusion, she was admitted for further workup and management. She was seen by both cardiology and pulmonary doctors, a 2D echo was done that described the pericardial effusion as quite small. Based on that finding cardiology determined there was no further intervention required for that. However the patient did have a history of atrial fibrillation and went into rapid ventricular response and this was aggressively managed per cardiology. Please see notes for details. However at this time she remains in atrial fibrillation but her rate is very well controlled. Pulmonary doctor recommended a thoracentesis which was done August 05, 2016. Thoracentesis fluid analysis had a predominance of lymphocytes and cultures were sent and have been negative so far. A urinalysis was done and patient did test positive for an E. coli urinary tract infection sensitivity showed that the organism is sensitive to most antibiotics and patient was treated with broad -spectrum antibiotics which were descalated during her hospitalization. At one point, patient was found to be quite lethargic and debilitated, she was also noted to have pressure ulcers and she was seen by the palliative care physician. However the patient perked up by revived quite nicely, at this time she is fully alert and oriented, conversant and even ambulatory with frontwheel walker and physical therapy and is requesting to be discharged home. Her family have however opted not to take her back to the convalescent home and she will be going home with her daughter for continued care. We are providing home health for physical therapy, nursing and wound care, patient is also been provided with DME's to assist in her transition. She is encouraged to follow-up with her own knock up assembler who did her original procedure or with Dr. Aguirre as outpatient within the next 1-2 weeks. She should also follow-up with her primary care doctor within a week. For further information and details please review the patient's chart. Above information has been discussed in detail with patient's daughter, she has verbalized understanding. . Home Meds Active Scripts Ciprofloxacin Hcl* (Ciprofloxacin Hcl*) 500 Mg Tablet, 500 MG PO BID for 5 Days , TAB Prov:CAESAR BROWN 6/30/17 Levalbuterol* (Xopenex* HFA) 15 Gm Inha, 2 PUFFS INH Q4H Y for WHEEZING AND SOB , #1 INHALER 2 Refills Prov:CAESAR BORWN. 08/06/16 Insulin Aspart* (Novolog Insulin Pen*) 100 Unit/Ml Soln, 5 UNIT SC WITH MEALS for 30 Days, 2 Refills Prov:CAESAR BROWN Katerina 08/06/16 Atenolol* (Atenolol*) 25 Mg Tablet, 25 MG PO BID for 30 Days, TAB 2 Refills Prov:GUILLERMO BROWNDede . 08/06/16 Apixaban* (Eliquis*) 5 Mg Tablet, 5 MG PO BID for 30 Days, TAB 2 Refills Prov:KEVIN08/06/16 Zinc Sulfate* (Zinc Sulfate*) 220 Mg Cap, 220 MG PO DAILY for 30 Days, CAP 2 Refills Prov:KEVINDede 08/06/16 Ascorbic Acid* (Ascorbic Acid*) 500 Mg/5 Ml Syrup, 500 MG PO BID for SUPPLEMENT for 30 Days, ML 2 Refills Prov:CAESAR BROWN 08/06/16 Acetaminophen* (Acetaminophen*) 650 Mg Tablet, 650 MG PO Q6H Y for PAIN LEVEL 1- 5, #30 TAB Prov:CAESAR BROWN 08/06/16 Amino Acids/Protein Hydrolys (Pro-Stat 64 Liquid) 887 Ml Liquid, 30 ML PO TID for SUPPLEMENT for 30 Days, 2 Refills Prov:CAESAR BROWN Katerina 08/06/16 Potassium Chloride* (Potassium Chloride*) 20 Meq Tablet.er, 20 MEQ PO DAILY for SUPPLEMENT for 30 Days, TAB.SA Prov:GUILLERMO BROWNDede Katerina 08/06/16 Esomeprazole Magnesium (Esomeprazole Magnesium) 40 Mg Capsule.dr, 40 MG PO BEFORE BREAKFAST for GI PROPHYLAXIS, #30 CAP 2 Refills Prov:GUILLERMO BROWNDede 08/06/16 Multivit-Min/Iron Fum/Folic AC (Fbxpn-Fhgejst-Azoxvkdo Tablet) 1 Each Tablet, 1 EACH PO DAILY for 30 Days, TAB 2 Refills Prov:GUILLERMO BROWNDede Katerina 08/06/16 Losartan Potassium* (Losartan Potassium*) 100 Mg Tablet, 100 MG PO DAILY for 30 Days, TAB 2 Refills ESSENTIAL(PRIMARY)HYPERTENSION ; HOLD FOR SBP<110 Prov:CAESAR BROWN 08/06/16 Atorvastatin* (Atorvastatin*) 40 Mg Tablet, 40 MG PO QHS for HYPERLIPIDEMIA for 30 Days, #30 TAB 2 Refills Prov:CAESAR BROWN 08/06/16 Furosemide* (Furosemide*) 20 Mg Tablet, 20 MG PO DAILY, #30 TAB HEART FALIURE Prov:CAESAR BROWN 08/06/16 Insulin Glargine* (Lantus*) 100 Unit/Ml Soln, 25 UNIT SC QHS for 30 Days, VIAL 2 Refills RELATED TO TYPE 2 DIABETES MELLITUS WITHOUT COMPLICATIONS Prov:CAESAR BROWN 08/06/16 Docusate Sodium* (Docusate Sodium*) 100 Mg Capsule, 100 MG PO BID for CONSTIPATION, #60 CAP Prov:CAESAR BROWN 08/06/16 Duloxetine Hcl* (Cymbalta*) 60 Mg Capsule.dr, 60 MG PO DAILY for MAJOR DEPRESSIVE DISORDER for 30 Days, CAP 2 Refills Prov:CAESAR BROWN 08/06/16 Diltiazem Hcl* (Cardizem LA*) 240 Mg Tab.sr.24h, 240 MG PO DAILY for HTN for 30 Days, #30 TAB.SA 2 Refills HOLD FOR SBP<110 Prov:CAESAR BROWN 08/06/16 Aspirin* (Aspirin* EC) 81 Mg Tablet.dr, 81 MG PO DAILY for CVA PROPHYLAXIS for 30 Days, TAB 2 Refills Prov:CAESAR BROWN 08/06/16 Allopurinol* (Allopurinol*) 300 Mg Tablet, 300 MG PO DAILY, #30 TAB 1 Refill Prov:CAESAR BROWN 08/06/16 Reported Medications Levalbuterol Hcl* (Levalbuterol Hcl*) 0.63 Mg/3 Ml Vial.neb, 0.63 MG INHALATION Q6H Y for WHEEZING AND SOB, VIAL CHRONIC OBSTRUCTIVE PULMONARY DISEASE 08/02/16 Guaifenesin-Dextromethorphan* (Robitussin* DM) 100MG/10MG/5ML Syrup, 15 ML PO Q6H Y for COUGH, ML 08/02/16 Hydrocodone/Acetaminophen ([place] 5-325 Tablet) 1 Each Tablet, 1 EACH PO Q4H for PAIN LEVEL 6-10, TAB 08/02/16 Pregabalin* (Lyrica*) 100 Mg Capsule, 100 MG PO QHS for NEUROPATHIC PAIN, CAP 08/02/16 Metoprolol Tartrate* (Lopressor*) 25 Mg Tablet, 75 MG PO DAILY for HTN, #180 TAB ESSENTIAL (PRIMARY)HYPERTENSION; HOLD FOR SBP<110 08/02/16 Insulin Human Regular (Novolin-R U-100) 100 Unit/Ml Soln, 0 SC SLIDING SCALE , EA INJECT PER SLIDING SCALE: IF 141-180= 1unit ; 181-220= 2units ; 221-260= 3units ; 261-300= 4units ; 301-350= 5units ; 351 and above = 6 units and Call MD. Subcutaneously before meals and at bedtime related to TYPE 2 DIABETES MELLITUS WITHOUT COMPLICATIONS 08/02/16 Apixaban* (Eliquis*) 5 Mg Tablet, 10 MG PO BID for CVA PROPHTLAXIS, TAB 08/02/16 Carvedilol* (Coreg*) 6.25 Mg Tablet, 6.25 MG PO BID for HTN, #60 TAB HOLD FOR SBP <110 08/02/16 Follow-up Plan See hospital course . Primary Care Provider Not On Staff Doctor Time spent on discharge: > 30 minutes Pending Labs Laboratory Tests Test 08/05/16 17:26 08/05/16 19:29 08/05/16 21:11 08/06/16 00:37 Bedside Glucose 176mg/dL (70-220) 173mg/dL (70-220) Troponin I < 0.012ng/ml (0.00-0.12) 0.018ng/ml (0.00-0.12) Test 08/06/16 05:00 08/06/16 05:20 08/06/16 08:22 08/06/16 12:13 White Blood Count 8.310^3/ul (4.8-10.8) Red Blood Count 3.7510^6/ul (4.20-5.40) Hemoglobin 10.8g/dl (12.0-16.0) Hematocrit 34.5% (37.0-47.0) Mean Corpuscular Volume 92.0fl (82.0-101.0) Mean Corpuscular Hemoglobin 28.8pg (29.0-33.0) Mean Corpuscular Hemoglobin Concent 31.3g/dl (32.0-37.0) Red Cell Distribution Width 14.6% (11.5-14.5) Platelet Count 59890^3/UL (140-415) Mean Platelet Volume 10.8fl (7.4-10.4) Neutrophils % 63.2% (39.0-77.0) Lymphocytes % 19.7% (15.0-51.0) Monocytes % 8.1% (0.0-11.0) Eosinophils % 7.1% (0.0-7.0) Basophils % 0.7% (0.0-2.0) Nucleated Red Blood Cells % 0.0/100WBC (0.0-0.0) Neutrophils # 5.310^3/ul (1.6-7.5) Lymphocytes # 1.610^3/ul (0.8-2.9) Monocytes # 0.710^3/ul (0.3-0.9) Eosinophils # 0.610^3/ul (0.0-0.5) Basophils # 0.110^3/ul (0.0-0.1) Nucleated Red Blood Cells # 0.010^3/ul (0.0-0.0) Sodium Level 135mmol/L (135-144) Potassium Level 4.1mmol/L (3.5-5.1) Chloride Level 92mmol/L (97-110) Carbon Dioxide Level 33mmol/L (21-31) Anion Gap 14 (8-16) Blood Urea Nitrogen 19mg/dl (7-20) Creatinine 0.77mg/dl (0.44-1.00) Glucose Level 137mg/dl (70-220) Calcium Level 8.9mg/dl (8.4-10.2) Bedside Glucose 157mg/dL (70-220) 154mg/dL (70-220) CAESAR BROWN Aug 06, 2016 14:44
--- NOTE | 2016-08-06 14:49 | PDOCDIS ---
Discharge Instructions DIAGNOSIS Discharge Diagnosis 81-year-old male who had presented with shortness of breath after recent aortic valve replacement surgery now managed as follows: 1. Acute on chronic respiratory failure secondary to CHF as well as significant left-sided pleural effusion: resolved 2. Left-sided pleural effusion with left-sided lower lobe atelectasis: cause unclear, non infectious, s/p thoracentesis 3. Mild acute on chronic diastolic CHF with chronic pulmonary hypertension and preserved ejection fraction : compensated 4. Small pericardial effusion per echo: non interventional 5. Status post bioprosthetic aortic valve placement secondary to severe aortic stenosis 6. Diabetes mellitus type 2 A!C:good control 7. Afib with RVR: Now rate controlled 8. hypertension: Controlled 9. Chronic kidney disease: stable 10. Chronic gout: without exacerbation 11. Left hip pain: Patient's pelvic x-ray did not show any acute signs of fracture: resolved? 12. 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 Sacral ulcer: wound care nurse to help at home 15. Ecoli UTI : on treatment 16. COPD: Stable CONDITION Patient Condition: Stable HOME CARE INSTRUCTIONS: Diet Instructions: Low Fat /CholesterolSpecial Diet: 1800 Calorie LOW SODIUM DIET. OTHER ORDERS: Other Orders: 1. Please follow-up with your primary care doctor within the next week. Notify him about the changes to medications, and current medical events. Take all paperwork from this hospital visit to review. 2. Call Dr. Aguirre office for cardiology follow-up. His information is as below. You may also call you on fruit grader operator if you have one Please followup with Dr Aguirre for cardiology Name, Degree: Billy Aguirre MD Specialty: Cardiology Comments: Office Address: [address] [place] [address] Office Office Business Unit Manager: Cinda Rita 3. Review your medication list with your nurse before leaving and if you need new prescriptions please let your nurse know. I have made changes to your home medications and given you new prescriptions, please let your primary doctor know as well. 4. Stay compliant with your medications and report any side effects to your PCP or pharmacist. 5. Return to the ER if you have any concerns and cannot reach your doctors or call your insurance company, they usually have a nurse that can help you. CAESAR BROWN. Aug 06, 2016 14:49
[2016-08-06] MEDS: APIXABAN 5 MG TABLET PO SCH (21:38)
[2016-08-06] MEDS: PREGABALIN 25 MG CAP PO SCH (21:38)
[2016-08-06] MEDS: ATORVASTATIN 40 MG TAB PO SCH (21:39)
[2016-08-06] MEDS: INSULIN GLARGINE [LANtus] 3 ML PEN SC SCH (21:43)
[2016-08-07] VITALS (9 sets, daily range): BP systolic 128–179; BP diastolic 60–89; PULSE 58–95; RESP 19–22
[2016-08-07] MEDS: ACCUCHECK AT 2AM (Patients on SS coverage) XX SCH (02:00)
[2016-08-07] MEDS: HYDROCODONE/APAP (5/325) TAB PO PRN (05:47)
[2016-08-07] MEDS: PANTOPRAZOLE (EC) 40 MG TAB PO SCH (05:47)
[2016-08-07] MEDS: FUROSEMIDE 20 MG INJ IV SCH (05:48)
[2016-08-07 07:27] LABS: BASOPHIL # 0.1 10^3/ul (0.0-0.1); BASOPHILS % 0.8 % (0.0-2.0); EOSINOPHILS # 0.7 10^3/ul (0.0-0.5); EOSINOPHILS % 9.1 % (0.0-7.0); HEMATOCRIT 34.8 % (37.0-47.0); LYMPHOCYTES # 1.4 10^3/ul (0.8-2.9); LYMPHOCYTES % 18.8 % (15.0-51.0); MEAN CORPUSCULAR HEMOGLOBIN 29.2 pg (29.0-33.0); MEAN CORPUSCULAR HGB CONC 31.6 g/dl (32.0-37.0); MEAN CORPUSCULAR VOLUME 92.3 fl (82.0-101.0); MEAN PLATELET VOLUME 10.8 fl (7.4-10.4); MONOCYTE # 0.6 10^3/ul (0.3-0.9); MONOCYTES % 8.1 % (0.0-11.0); NEUTROPHIL # 4.7 10^3/ul (1.6-7.5); NEUTROPHILS % 61.6 % (39.0-77.0); PLATELET COUNT 271 10^3/UL (140-415); RED BLOOD COUNT 3.77 10^6/ul (4.20-5.40); RED CELL DISTRIBUTION WIDTH 14.5 % (11.5-14.5); WHITE BLOOD COUNT 7.7 10^3/ul (4.8-10.8)
[2016-08-07 07:49] LABS: CALCIUM 9.1 mg/dl (8.4-10.2); CREATININE 0.8 mg/dl (0.44-1.00); POTASSIUM 3.9 mmol/L (3.5-5.1)
[2016-08-07] MEDS: Insulin NOVOLOG SS MILD Algorithm (SS with meals and bedtime) SC SCH ×2 (08:10→11:37)
[2016-08-07] MEDS: INSULIN ASPART [NOVOLOG] 3 ML PEN SC SCH ×2 (08:13→11:38)
[2016-08-07] MEDS: ZINC SULFATE 220 MG CAP PO SCH (09:38)
[2016-08-07] MEDS: DOCUSATE SODIUM 100 MG CAP PO SCH (09:38)
[2016-08-07] MEDS: ASPIRIN (EC) 81 MG TAB PO SCH (09:38)
[2016-08-07] MEDS: ASCORBIC ACID 500 MG TAB PO SCH (09:38)
[2016-08-07] MEDS: APIXABAN 5 MG TABLET PO SCH (09:38)
[2016-08-07] MEDS: DULOXETINE 30 MG CAP DR PO SCH (09:38)
[2016-08-07] MEDS: AMIODARONE 200 MG TAB PO SCH (09:39)
[2016-08-07] MEDS: ATENOLOL 25 MG TAB PO SCH (09:39)
[2016-08-07] MEDS: DILTIAZEM (CD) 240 MG CAP PO SCH (09:40)
--- NOTE | 2016-08-07 12:48 | DS ---
Date/Time of Note Date/Time of Note DATE: 08/07/16 TIME: 12:48 Discharge Summary Admission/Discharge Info Admit Date/Time Aug 03, 2016 at 15:32 Discharge Date/Time Discharge Diagnosis 1. Acute on chronic respiratory failure secondary to CHF as well as significant left-sided pleural effusion: resolved 2. Left-sided pleural effusion with left-sided lower lobe atelectasis: cause unclear, non infectious, s/p thoracentesis 3. Mild acute on chronic diastolic CHF with chronic pulmonary hypertension and preserved ejection fraction : compensated 4. Small pericardial effusion per echo: non interventional 5. Status post bioprosthetic aortic valve placement secondary to severe aortic stenosis 6. Diabetes mellitus type 2 A!C:good control 7. Afib with RVR: Now rate controlled 8. hypertension: Controlled 9. Chronic kidney disease: stable 10. Chronic gout: without exacerbation 11. Left hip pain: Patient's pelvic x-ray did not show any acute signs of fracture: resolved? 12. 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 Sacral ulcer: wound care nurse to help at home 15. Ecoli UTI : on treatment 16. COPD: Stable Patient Condition: Stable Hx of Present Illness Chief complaint: Shortness of breath 4 days This is a 81-year-old female with a history of multiple medical problems including recent TAVR approximately 3-4 weeks ago, comes in today with shortness of breath 4 days. Of note patient is a poor historian. Patient currently is living at [facility]. Patient states that she started experiencing shortness of breath over the last 3-4 days and it has progressively gotten worse. Patient also states that she fell the other day did not lose any consciousness or hit her head. She did develop fall on her left hip. Patient denies any chest pain or any coughing at this time. Denies any fevers. Denies any sputum production. She does state that she noticed some swelling in her lower extremities. Allergies: NSAIDs, codeine Medications: See [facility] Hospital Course 81-year-old female who has had recent aortic valve replacement because of severe aortic stenosis and was sent to a [facility] facility after the procedure because she was ventilator dependent for a while with respiratory failure and at the end of her hospitalization was quite debilitated. She had been undergoing rehab at the facility, but then family had noted that she was becoming more and more short of breath and she was brought to us as the nearest ER for evaluation. In the emergency room, she was found to have on CAT scan pleural effusion as well as pericardial effusion, she was admitted for further workup and management. She was seen by both cardiology and pulmonary doctors, a 2D echo was done that described the pericardial effusion as quite small. Based on that finding cardiology determined there was no further intervention required for that. However the patient did have a history of atrial fibrillation and went into rapid ventricular response and this was aggressively managed per cardiology. Please see notes for details. However at this time she remains in atrial fibrillation but her rate is very well controlled. Pulmonary doctor recommended a thoracentesis which was done August 05, 2016. Thoracentesis fluid analysis had a predominance of lymphocytes and cultures were sent and have been negative so far. A urinalysis was done and patient did test positive for an E. coli urinary tract infection sensitivity showed that the organism is sensitive to most antibiotics and patient was treated with broad -spectrum antibiotics which were descalated during her hospitalization. At one point, patient was found to be quite lethargic and debilitated, she was also noted to have pressure ulcers and she was seen by the palliative care physician. However the patient perked up by revived quite nicely, at this time she is fully alert and oriented, conversant and even ambulatory with frontwheel walker and physical therapy and is requesting to be discharged home. Her family have however opted not to take her back to the convalescent home and she will be going home with her daughter for continued care. We are providing home health for physical therapy, nursing and wound care, patient is also been provided with DME's to assist in her transition. She is encouraged to follow-up with her own psychopaedic nurse who did her original procedure or with Dr. Aguirre as outpatient within the next 1-2 weeks. She should also follow-up with her primary care doctor within a week. For further information and details please review the patient's chart. Above information has been discussed in detail with patient's daughter, she has verbalized understanding. Addendum 08/07/16: The patient was not discharged yesterday due to coordination of her home health support. Everything has been put in place today. The patient remains stable for discharge at this time with same instructions. . Home Meds Active Scripts Ciprofloxacin Hcl* (Ciprofloxacin Hcl*) 500 Mg Tablet, 500 MG PO BID for 5 Days , TAB Prov:KEVINGUILLERMO. 08/06/16 Levalbuterol* (Xopenex* HFA) 15 Gm Inha, 2 PUFFS INH Q4H Y for WHEEZING AND SOB , #1 INHALER 2 Refills Prov:KEVINPENG08/06/16 Insulin Aspart* (Novolog Insulin Pen*) 100 Unit/Ml Soln, 5 UNIT SC WITH MEALS for 30 Days, 2 Refills Prov:KEVINPENG. 08/06/16 Atenolol* (Atenolol*) 25 Mg Tablet, 25 MG PO BID for 30 Days, TAB 2 Refills Prov:08/06/16 Apixaban* (Eliquis*) 5 Mg Tablet, 5 MG PO BID for 30 Days, TAB 2 Refills Prov:08/06/16 Zinc Sulfate* (Zinc Sulfate*) 220 Mg Cap, 220 MG PO DAILY for 30 Days, CAP 2 Refills Prov:KEVIN08/06/16 Ascorbic Acid* (Ascorbic Acid*) 500 Mg/5 Ml Syrup, 500 MG PO BID for SUPPLEMENT for 30 Days, ML 2 Refills Prov:KEVIN08/06/16 Acetaminophen* (Acetaminophen*) 650 Mg Tablet, 650 MG PO Q6H Y for PAIN LEVEL 1- 5, #30 TAB Prov:08/06/16 Amino Acids/Protein Hydrolys (Pro-Stat 64 Liquid) 887 Ml Liquid, 30 ML PO TID for SUPPLEMENT for 30 Days, 2 Refills Prov:KEVINGUILLERMO08/06/16 Potassium Chloride* (Potassium Chloride*) 20 Meq Tablet.er, 20 MEQ PO DAILY for SUPPLEMENT for 30 Days, TAB.SA Prov:KEVINGUILLERMO08/06/16 Esomeprazole Magnesium (Esomeprazole Magnesium) 40 Mg Capsule.dr, 40 MG PO BEFORE BREAKFAST for GI PROPHYLAXIS, #30 CAP 2 Refills Prov:[facility]UILLERMOSt. [facility] Multivit-Min/Iron Fum/Folic AC (Gatgv-Fqadttt-Jijxscfz Tablet) 1 Each Tablet, 1 EACH PO DAILY for 30 Days, TAB 2 Refills Prov:GUILLERMO BROWN . 08/06/16 Pregabalin* (Lyrica*) 100 Mg Capsule, 100 MG PO QHS for NEUROPATHIC PAIN for 30 Days, CAP 2 Refills Prov: 08/06/16 Losartan Potassium* (Losartan Potassium*) 100 Mg Tablet, 100 MG PO DAILY for 30 Days, TAB 2 Refills ESSENTIAL(PRIMARY)HYPERTENSION ; HOLD FOR SBP<110 Prov:[facility]PEN[facility] 08/06/16 Atorvastatin* (Atorvastatin*) 40 Mg Tablet, 40 MG PO QHS for HYPERLIPIDEMIA for 30 Days, #30 TAB 2 Refills [facility] 08/06/16 Furosemide* (Furosemide*) 20 Mg Tablet, 20 MG PO DAILY, #30 TAB HEART FALIURE Prov:[facility] 08/06/16 Insulin Glargine* (Lantus*) 100 Unit/Ml Soln, 25 UNIT SC QHS for 30 Days, VIAL 2 Refills RELATED TO TYPE 2 DIABETES MELLITUS WITHOUT COMPLICATIONS Prov:KEVIN 08/06/16 Docusate Sodium* (Docusate Sodium*) 100 Mg Capsule, 100 MG PO BID for CONSTIPATION, #60 CAP Prov:[facility] 08/06/16 Duloxetine Hcl* (Cymbalta*) 60 Mg Capsule.dr, 60 MG PO DAILY for MAJOR DEPRESSIVE DISORDER for 30 Days, CAP 2 Refills [facility] Diltiazem Hcl* (Cardizem LA*) 240 Mg Tab.sr.24h, 240 MG PO DAILY for HTN for 30 Days, #30 TAB.SA 2 Refills HOLD FOR SBP<110 Prov:[facility] 08/06/16 Aspirin* (Aspirin* EC) 81 Mg Tablet.dr, 81 MG PO DAILY for CVA PROPHYLAXIS for 30 Days, TAB 2 Refills Prov:[facility]/16 Allopurinol* (Allopurinol*) 300 Mg Tablet, 300 MG PO DAILY, #30 TAB 1 Refill Prov:[facility]/16 Reported Medications Guaifenesin-Dextromethorphan* (Robitussin* DM) 100MG/10MG/5ML Syrup, 15 ML PO Q6H Y for COUGH, ML 08/02/16 Discontinued Reported Medications Levalbuterol Hcl* (Levalbuterol Hcl*) 0.63 Mg/3 Ml Vial.neb, 0.63 MG INHALATION Q6H Y for WHEEZING AND SOB, VIAL CHRONIC OBSTRUCTIVE PULMONARY DISEASE 08/02/16 Hydrocodone/Acetaminophen ([place] 5-325 Tablet) 1 Each Tablet, 1 EACH PO Q4H for PAIN LEVEL 6-10, TAB 08/02/16 Metoprolol Tartrate* (Lopressor*) 25 Mg Tablet, 75 MG PO DAILY for HTN, #180 TAB ESSENTIAL (PRIMARY)HYPERTENSION; HOLD FOR SBP<110 08/02/16 Insulin Human Regular (Novolin-R U-100) 100 Unit/Ml Soln, 0 SC SLIDING SCALE , EA INJECT PER SLIDING SCALE: IF 141-180= 1unit ; 181-220= 2units ; 221-260= 3units ; 261-300= 4units ; 301-350= 5units ; 351 and above = 6 units and Call MD. Subcutaneously before meals and at bedtime related to TYPE 2 DIABETES MELLITUS WITHOUT COMPLICATIONS 08/02/16 Apixaban* (Eliquis*) 5 Mg Tablet, 10 MG PO BID for CVA PROPHTLAXIS, TAB 08/02/16 Carvedilol* (Coreg*) 6.25 Mg Tablet, 6.25 MG PO BID for HTN, #60 TAB HOLD FOR SBP <110 08/02/16 Primary Care Provider Not On Staff Doctor Time spent on discharge: < 30 minutes Pending Labs Laboratory Tests Test 08/06/16 17:21 08/06/16 21:35 08/07/16 06:40 08/07/16 08:07 Bedside Glucose 151mg/dL (70-220) 238mg/dL (70-220) 154mg/dL (70-220) White Blood Count 7.710^3/ul (4.8-10.8) Red Blood Count 3.7710^6/ul (4.20-5.40) Hemoglobin 11.0g/dl (12.0-16.0) Hematocrit 34.8% (37.0-47.0) Mean Corpuscular Volume 92.3fl (82.0-101.0) Mean Corpuscular Hemoglobin 29.2pg (29.0-33.0) Mean Corpuscular Hemoglobin Concent 31.6g/dl (32.0-37.0) Red Cell Distribution Width 14.5% (11.5-14.5) Platelet Count 82333^3/UL (140-415) Mean Platelet Volume 10.8fl (7.4-10.4) Neutrophils % 61.6% (39.0-77.0) Lymphocytes % 18.8% (15.0-51.0) Monocytes % 8.1% (0.0-11.0) Eosinophils % 9.1% (0.0-7.0) Basophils % 0.8% (0.0-2.0) Nucleated Red Blood Cells % 0.0/100WBC (0.0-0.0) Neutrophils # 4.710^3/ul (1.6-7.5) Lymphocytes # 1.410^3/ul (0.8-2.9) Monocytes # 0.610^3/ul (0.3-0.9) Eosinophils # 0.710^3/ul (0.0-0.5) Basophils # 0.110^3/ul (0.0-0.1) Nucleated Red Blood Cells # 0.010^3/ul (0.0-0.0) Sodium Level 132mmol/L (135-144) Potassium Level 3.9mmol/L (3.5-5.1) Chloride Level 88mmol/L (97-110) Carbon Dioxide Level 33mmol/L (21-31) Anion Gap 15 (8-16) Blood Urea Nitrogen 23mg/dl (7-20) Creatinine 0.80mg/dl (0.44-1.00) Glucose Level 156mg/dl (70-220) Calcium Level 9.1mg/dl (8.4-10.2) Test 08/07/16 11:35 Bedside Glucose 194mg/dL (70-220) CAESAR BROWN Aug 07, 2016 12:48
[2016-08-07] MEDS: COLLAGENASE 30 GM TUBE TOP SCH (13:35)
[2016-08-07] MEDS: CEFTRIAXONE 1 GM/50 ML (PMX) 50 ML IVPB SCH ×2 (13:46→13:49)
--- NOTE | 2016-08-07 14:31 | CONS ---
Date/Time of Note Date/Time of Note DATE: 08/07/16 TIME: 14:27 Assessment/Plan Assessment/Plan Additional Assessment/Plan 1.CHF-by CT ? diastolic acute on chronic - con't gentle diuresis 2.AF with RVR - now improved HR - con't to adjust meds 3.H/O AVR-bioprosthetic - well sounding by exam 4.COPD - Rx with primary team 5.SOB 6. Coagulopathy 7. Anemia 8.Pericardial effusion- echo this admit with small effusion only - n ointervention needed 9. Chest pain-described as palpitation more than pain and now resolved/neg trop x 3 Consultation Date/Type/Reason Admit Date/Time Aug 03, 2016 at 15:32 Initial Consult Date 08/04/16 Type of Consultation: cardiology Referring Provider: SNEHAL AMANDA 24 HR Interval Summary Free Text/Dictation No acute events - rate controlled - con't to keep euvolemic ROS: No fever, no chills, no nausea, no vomiting, no diarrhea/constipation No recent weight changes No chest pain, no PND, no orthopnea No dizziness, blurred vision No thirst, no heat or cold intolerance Exam/Review of Systems Vital Signs Vitals Vital Signs Date Time Temp Pulse Resp B/P Pulse Ox O2 Delivery O2 Flow Rate FiO2 08/07/16 12:00 58 08/07/16 11:13 98.3 19 128/65 98 08/07/16 08:30 Nasal Cannula 4.0 08/07/16 01:51 21 Intake and Output 08/06/16 08/06/16 08/07/16 15:00 23:00 07:00 Intake Total 500 ml 400 ml Balance 500 ml 400 ml Exam General: WN/WD/NAD, AOx 1-2 HEENT: Unicetric/atraumatic/EOMI (does not follow commands) NECK: JVD elevated, no thyromegaly Lymph: no lymphadenopathy HEART: IR Irregular with no S3, II/ systolic murmur at apex LUNGS: Coarse sounds ABD: soft, NT, ND, +BS : Intact Neuro: non focal SKIN: chronic changes EXT: trace edema Results Result Diagram: 08/07/16 0640 08/07/16 0640 Results 24 hrs Laboratory Tests Test 08/06/16 17:21 08/06/16 21:35 08/07/16 06:40 08/07/16 08:07 Bedside Glucose 151 238 H 154 White Blood Count 7.7 Red Blood Count 3.77 L Hemoglobin 11.0 L Hematocrit 34.8 L Mean Corpuscular Volume 92.3 Mean Corpuscular Hemoglobin 29.2 Mean Corpuscular Hemoglobin Concent 31.6 L Red Cell Distribution Width 14.5 Platelet Count 271 Mean Platelet Volume 10.8 H Neutrophils % 61.6 Lymphocytes % 18.8 Monocytes % 8.1 Eosinophils % 9.1 H Basophils % 0.8 Nucleated Red Blood Cells % 0.0 Neutrophils # 4.7 Lymphocytes # 1.4 Monocytes # 0.6 Eosinophils # 0.7 H Basophils # 0.1 Nucleated Red Blood Cells # 0.0 Sodium Level 132 L Potassium Level 3.9 Chloride Level 88 L Carbon Dioxide Level 33 H Anion Gap 15 Blood Urea Nitrogen 23 H Creatinine 0.80 Glucose Level 156 Calcium Level 9.1 Test 08/07/16 11:35 Bedside Glucose 194 Medications Medications Current Medications Ondansetron HCl (Zofran Inj) 4 mg Q6H PRN IV NAUSEA AND/OR VOMITING; Start at 05:30 Acetaminophen (Tylenol Tab) 650 mg Q6H PRN PO PAIN LEVEL 1-3 OR FEVER Last administered on 08/03/16 19:16; Admin Dose 650 MG; Start 08/03/16 at 05:30 Allopurinol (Zyloprim) 300 mg DAILY PRN PO GOUT; Start 08/03/16 at 05:30 Aspirin (Halfprin) 81 mg DAILY PO Last administered on 08/07/16 09:38; Admin Dose 81 MG; Start 08/03/16 at 09:00 Atorvastatin Calcium (Lipitor) 40 mg QHS PO Last administered on 08/06/16 21: 39; Admin Dose 40 MG; Start 08/03/16 at 21:00 Diltiazem HCl (Cardizem Cd) 240 mg DAILY PO Last administered on 08/07/16 09:40 ; Admin Dose 240 MG; Start 08/03/16 at 09:00 Docusate Sodium (Colace) 100 mg BID PO Last administered on 08/07/16 09:38; Admin Dose 100 MG; Start 08/03/16 at 09:00 Duloxetine HCl (Cymbalta) 60 mg DAILY PO Last administered on 08/07/16 09:38; Admin Dose 60 MG; Start 08/03/16 at 09:00 Guaifenesin/ Dextromethorphan (Robitussin Dm Liquid Cup) 15 ml Q6H PRN PO COUGH ; Start 08/03/16 at 05:30 Insulin Glargine (Lantus) 25 unit QHS SC Last administered on 08/06/16 21:43; Admin Dose 25 UNIT; Start 08/03/16 at 21:00 Zinc Sulfate (Zinc Sulfate) 220 mg DAILY PO Last administered on 08/07/16 09:38 ; Admin Dose 220 MG; Start 08/03/16 at 09:00 Ascorbic Acid (Vitamin C) 500 mg BID PO Last administered on 08/07/16 09:38; Admin Dose 500 MG; Start 08/03/16 at 09:00 Miscellaneous Information 1 ea NOTE XX ; Start 08/03/16 at 06:00 Glucose (Glutose) 15 gm Q15M PRN PO DECREASED GLUCOSE; Start 08/03/16 at 06:00 Glucose (Glutose) 22.5 gm Q15M PRN PO DECREASED GLUCOSE; Start 08/03/16 at 06: 00 Dextrose (D50w Syringe) 25 ml Q15M PRN IV DECREASED GLUCOSE; Start 08/03/16 at 06:00 Dextrose (D50w Syringe) 50 ml Q15M PRN IV DECREASED GLUCOSE; Start 08/03/16 at 06:00 Glucagon (Glucagen) 1 mg Q15M PRN IM DECREASED GLUCOSE; Start 08/03/16 at 06:00 Glucose (Glutose) 15 gm Q15M PRN BUCCAL DECREASED GLUCOSE; Start 08/03/16 at 06 :00 Metoprolol Tartrate 5 mg 5 mg Q4H PRN IV HR>110 Hold SBP<100; Start 08/03/16 at 14:30 Ceftriaxone Sodium (Rocephin) 50 ml @ 100 mls/hr Q24H IVPB Last administered on 08/07/16 13:49; Admin Dose 100 MLS/HR; Start 08/03/16 at 15:30 Pregabalin (Lyrica) 100 mg QHS PO Last administered on 08/06/16 21:38; Admin Dose 100 MG; Start 08/03/16 at 21:00 Acetaminophen/ Hydrocodone Bitart ([place] (5/325)) 1 tab Q4H PRN PO PAIN Last administered on 08/07/16 05:47; Admin Dose 1 TAB; Start 08/03/16 at 22:00 Collagenase (Santyl) 1 applic DAILY TOP Last administered on 08/07/16 13:35; Admin Dose 1 APPLIC; Start 08/03/16 at 21:56 Collagenase (Santyl) 1 applic PRN PRN TOP WOUND CARE; Start 08/03/16 at 22:00 Apixaban (Eliquis) 5 mg BID PO Last administered on 08/07/16 09:38; Admin Dose 5 MG; Start 08/04/16 at 21:00 Pantoprazole (Protonix Tab) 40 mg DAILY@06 PO Last administered on 08/07/16 05: 47; Admin Dose 40 MG; Start 08/05/16 at 06:00 Hydromorphone HCl (Dilaudid) 0.5 mg Q4H PRN IV PAIN Last administered on 12:56; Admin Dose 0.5 MG; Start 08/04/16 at 12:45 Diagnostic Test (Pha) (Accu-Chek) 1 ea 02 XX ; Start 08/05/16 at 02:00 Amiodarone HCl (Cordarone) 200 mg BID PO Last administered on 08/07/16 09:39; Admin Dose 200 MG; Start 08/04/16 at 21:00 Atenolol (Tenormin) 25 mg BID PO Last administered on 08/07/16 09:39; Admin Dose 25 MG; Start 08/04/16 at 21:00 Hydralazine HCl (Apresoline) 25 mg Q6H PRN PO ELEVATED BLOOD PRESSURE Last administered on 08/05/16 08:19; Admin Dose 25 MG; Start 08/04/16 at 22:30 NINO MENENDEZ MD Aug 07, 2016 14:31
--- NOTE | 2016-08-09 20:55 | RADRPT ---
Vent Rate: 62 bpm RR Interval: 0 msec TN Interval: 0 msec QRS Duration: 102 msec QT Interval: 416 msec QTC Interval: 422 msec P-R-T [place]: 0 - -12 - [address] amp; T wave abnormality, consider inferolateral ischemia or digitalis effect Abnormal ECG Electronically Signed By: Messi Briceno [id number]
== END 2016-08-07 14:46 | disposition home or self-care (01) | DRG 291 ==
LOC: E/R 20:49 → TEL 08-03 01:10 → OBSVTOIN 08-03 15:32 → TEL 08-03 22:52
PROVIDERS: ADMIT Family Medicine; ATTEND Family Medicine
PROC: 0W9B3ZZ Drainage of Left Pleural Cavity, Percutaneous Approach (ICD-10-PCS; principal; 2016-08-05)
DX: I13.0 Hypertensive heart and chronic kidney disease with heart failure and stage 1 through stage 4 chronic kidney disease, or unspecified chronic kidney disease (principal); I50.33 Acute on chronic diastolic (congestive) heart failure; J96.20 Acute and chronic respiratory failure, unspecified whether with hypoxia or hypercapnia; L89.150 Pressure ulcer of sacral region, unstageable; J90 Pleural effusion, not elsewhere classified; D68.9 Coagulation defect, unspecified; I27.2 Other secondary pulmonary hypertension; E11.22 Type 2 diabetes mellitus with diabetic chronic kidney disease; Z68.41 Body mass index [BMI] 40.0-44.9, adult; N39.0 Urinary tract infection, site not specified; J44.9 Chronic obstructive pulmonary disease, unspecified; Z79.4 Long term (current) use of insulin; M10.9 Gout, unspecified; M25.552 Pain in left hip; K82.8 Other specified diseases of gallbladder; Z99.81 Dependence on supplemental oxygen; E78.5 Hyperlipidemia, unspecified; F32.9 Major depressive disorder, single episode, unspecified; E66.01 Morbid (severe) obesity due to excess calories; I48.91 Unspecified atrial fibrillation; Z87.891 Personal history of nicotine dependence; D63.8 Anemia in other chronic diseases classified elsewhere; B96.20 Unspecified Escherichia coli [E. coli] as the cause of diseases classified elsewhere; Z95.3 Presence of xenogenic heart valve; N18.9 Chronic kidney disease, unspecified
CPT/HCPCS: 36415; 36600; 71010; 71275; 72170; 76942; 80048; 80053; 81001; 82803; 82945; 82962; 83615; 83690; 83735; 83880; 84134; 84436; 84443; 84479; 84484; 85025; 85610; 87070; 87081; 87086; 87102; 87116; 89050; 93005; 93306; 94640; 94760; 97162; G0378; J1940; C9113; J0696; J1170; J1815; J3475; Q9967